=== PATIENT | female | born 1935 | race Caucasian/White ===

== ENCOUNTER 2017-04-26 10:29 | Inpatient (IN) | payer OTHER ==
[~2017-04-26] VITALS: Ht 162.6 cm; Wt 64.6 kg
[~2017-04-26 10:29] MED LIST: ACET325T14 PO; ALEN70TA3 PO; CALC200T20 PO; CALC3.7S5 NAS; CHOL10003 PO; FOSF3PAC PO; IBUP-1222 PO; IBUP200T48 PO; LEVO750T26 PO; MELO-184 PO; NITR100C56 PO; NITR50CA11 PO; ONDA4TAB13 PO; OXYC1TAB7 PO; SENN1TAB7 PO
[2017-04-26 15:04] LABS: BLOOD UREA NITROGEN 11 mg/dL (7-18)
[2017-04-26 15:09] LABS: IS PT STATUS REG ER OR PRE ER? YES
[2017-04-26] MEDS ORDERED: CEFTRIAXONE PMX 1GM/50ML 50 ML ONE (16:22)
[2017-04-26] MEDS ORDERED: ACETAMINOPHEN 325 MG TABLET ONE (16:22)
[2017-04-26] MEDS ORDERED: ACETAMINOPHEN 325 MG TABLET PO ONE (16:30)
[2017-04-26] MEDS ORDERED: CEFTRIAXONE PMX 1GM/50ML 50 ML IV ONE (16:30)
[2017-04-26] MEDS ORDERED: LABETALOL 5MG/ML, 20ML IVPush PRN (17:30)
[2017-04-26] MEDS ORDERED: ACETAMINOPHEN 325 MG TABLET PO PRN (17:30)
[2017-04-26] MEDS ORDERED: ENALAPRILAT 1.25 MG/ML, 2ML IVPush PRN (17:30)
[2017-04-26] MEDS ORDERED: BISACODYL 10 MG SUPP PR PRN (17:30)
[2017-04-26] MEDS ORDERED: POLYETHYLENE GLYCOL 17 GM PACKET PO PRN (17:30)
[2017-04-26] MEDS ORDERED: ONDANSETRON 2MG/ML, 2ML IVPush PRN (17:30)
[2017-04-26 17:58] VITALS: BP 116/81
[2017-04-26] MEDS: CEFTRIAXONE PMX 1GM/50ML 50 ML IV SCH (18:00)
[2017-04-26] MEDS ORDERED: OXYcodone/APAP 5/325MG TABLET PO PRN (18:00)
[2017-04-26] MEDS ORDERED: IBUP-1222 PO (18:10)
[2017-04-26 18:26] VITALS: BP 139/80
[2017-04-26] MEDS: ENOXAPARIN 40 MG/0.4 ML SQ SCH (20:15)
[2017-04-26] MEDS: IBUPROFEN 200 MG TABLET PO PRN (20:49)
[2017-04-27 00:31] VITALS: BP 103/67
[2017-04-27 07:37] VITALS: BP 117/74
[2017-04-27] MEDS: SENNA/DOCUSATE TABLET PO SCH ×2 (09:00→09:43)
[2017-04-27] MEDS: IBUPROFEN 200 MG TABLET PO PRN (09:42)
[2017-04-27 12:35] VITALS: BP 104/66
[2017-04-27 18:26] VITALS: BP 111/75
[2017-04-27] MEDS: CEFTRIAXONE PMX 1GM/50ML 50 ML IV SCH (18:49)
[2017-04-27] MEDS: ENOXAPARIN 40 MG/0.4 ML SQ SCH (21:32)
[2017-04-28 00:23] VITALS: BP 127/82
[2017-04-28 07:18] VITALS: BP 125/77
[2017-04-28] MEDS: IBUPROFEN 200 MG TABLET PO PRN (08:19)
[2017-04-28] MEDS: CALCITONIN NASAL 200 UNITS/0.09ML, 3.7ML NAS SCH (08:19)
[2017-04-28] MEDS: SENNA/DOCUSATE TABLET PO SCH (08:20)
[2017-04-28 12:00] VITALS: BP 108/72
[2017-04-28] MEDS: CEFTRIAXONE PMX 1GM/50ML 50 ML IV SCH (18:20)
[2017-04-28 20:00] VITALS: BP 113/74
[2017-04-28] MEDS: ENOXAPARIN 40 MG/0.4 ML SQ SCH (21:19)
[2017-04-29 02:00] VITALS: BP 108/68
[2017-04-29 07:13] VITALS: BP 114/71
[2017-04-29] MEDS: CALCITONIN NASAL 200 UNITS/0.09ML, 3.7ML NAS SCH (08:58)
[2017-04-29] MEDS: SENNA/DOCUSATE TABLET PO SCH (08:58)
[2017-04-29] MEDS ORDERED: CALC3.7S5 NAS (13:00)
[2017-04-29] MEDS ORDERED: NITR100C56 PO (13:00)
== END 2017-04-29 15:25 | disposition home or self-care (01) | DRG 690 ==
LOC: ED 13:11 → EDIP 16:20 → 3NE 17:22
PROVIDERS: ADMIT Hospitalist; ATTEND Family Medicine
PROC: 0T9B70Z Drainage of Bladder with Drainage Device, Via Natural or Artificial Opening (ICD-10-PCS; principal; 2017-04-26)
DX: N39.0 Urinary tract infection, site not specified (principal); F03.90 Unspecified dementia, unspecified severity, without behavioral disturbance, psychotic disturbance, mood disturbance, and anxiety; M81.0 Age-related osteoporosis without current pathological fracture; N32.81 Overactive bladder; R13.10 Dysphagia, unspecified; M54.2 Cervicalgia; W06.XXXA Fall from bed, initial encounter; B96.20 Unspecified Escherichia coli [E. coli] as the cause of diseases classified elsewhere; R32 Unspecified urinary incontinence; Z66 Do not resuscitate; Z87.440 Personal history of urinary (tract) infections; Z87.891 Personal history of nicotine dependence; Z88.0 Allergy status to penicillin; Y93.89 Activity, other specified; Y92.092 Bedroom in other non-institutional residence as the place of occurrence of the external cause; Y99.8 Other external cause status; R33.0 Drug induced retention of urine; T44.3X5A Adverse effect of other parasympatholytics [anticholinergics and antimuscarinics] and spasmolytics, initial encounter
CPT/HCPCS: 36415; 71010; 80048; 81001; 82040; 84484; 85025; 87077; 87086; 87186; 93005; 96374; J0696; J1650; 92523-GN

== ENCOUNTER 2017-11-30 10:45 | Emergency (ER) | payer OTHER ==
[~2017-11-30] VITALS: Ht 162.6 cm; Wt 63.0 kg
[~2017-11-30 10:45] MED LIST changes: -IBUP200T48 PO; +IBUP200T49 PO; -MELO-184 PO; +MELO15TA24 PO
[2017-11-30 11:19] LABS: BASOPHILS # (AUTO) 0.04 x10^3/uL (0-0.1); BASOPHILS % (AUTO) 1 % (0-1); EOSINOPHILS # (AUTO) 0.21 x10^3/uL (0-0.4); EOSINOPHILS % (AUTO) 3 % (1-7); LYMPHOCYTES # (AUTO) 1.18 x10^3/uL (1-3.4); LYMPHOCYTES % (AUTO) 15 % (22-44); MD NO; MEAN CORPUSCULAR HEMOGLOBIN 30.2 pg (27.0-34.8); MEAN CORPUSCULAR HGB CONC 33.3 g/dL (32.4-35.8); MEAN CORPUSCULAR VOLUME 90.7 fL (80-100); MEAN PLATELET VOLUME 6.9 fL (7.4-10.4); MONOCYTES # (AUTO) 0.89 x10^3/uL (0.2-0.8); MONOCYTES % (AUTO) 11 % (2-9); NEUTROPHILS # (AUTO) 5.79 x10^3/uL (1.8-6.8); NEUTROPHILS % (AUTO) 71 % (42-75); PLATELET COUNT 136 x10^3/uL (130-400); RED BLOOD COUNT 4.31 x10^6/uL (3.82-5.3); RED CELL DISTRIBUTION WIDTH 13.6 % (9.6-15.2)
[2017-11-30 11:29] LABS: CHLORIDE 108 mmol/L (98-107)
[2017-11-30 11:30] LABS: ANION GAP 10 mmol/L (5-15); CREATININE 0.87 mg/dL (0.55-1.02)
[2017-11-30 11:38] LABS: INTERNATIONAL NORMALIZED RATIO 1.03 (0.93-1.1); PROTHROMBIN TIME 10.7 Seconds (9.6-11.5)
[2017-11-30] MEDS ORDERED: APIXABAN 5 MG TABLET PO ONE (12:30)
[2017-11-30 13:04] VITALS: BP 114/38
== END 2017-11-30 14:11 | disposition home or self-care (01) ==
LOC: ED 11:48
DX: I82.411 Acute embolism and thrombosis of right femoral vein (principal); I82.491 Acute embolism and thrombosis of other specified deep vein of right lower extremity; Z79.01 Long term (current) use of anticoagulants
CPT/HCPCS: 36415; 80048; 85025; 85610; 85730; 99285

== ENCOUNTER 2017-12-01 10:26 | Observation (INO) | payer OTHER ==
[~2017-12-01] VITALS: Ht 162.6 cm; Wt 68.6 kg
[2017-12-01] MEDS ORDERED: ENOXAPARIN 80 MG/0.8 ML ONE (11:00)
[2017-12-01] MEDS ORDERED: ENOXAPARIN 80 MG/0.8 ML SQ ONE (11:30)
[2017-12-01 12:28] LABS: BASOPHILS # (AUTO) 0.04 x10^3/uL (0-0.1); BASOPHILS % (AUTO) 1 % (0-1); EOSINOPHILS % (AUTO) 3 % (1-7); LYMPHOCYTES # (AUTO) 1.66 x10^3/uL (1-3.4); LYMPHOCYTES % (AUTO) 24 % (22-44); MD NO; MEAN CORPUSCULAR HEMOGLOBIN 30.2 pg (27.0-34.8); MEAN CORPUSCULAR HGB CONC 33.7 g/dL (32.4-35.8); MEAN CORPUSCULAR VOLUME 89.6 fL (80-100); MONOCYTES # (AUTO) 0.81 x10^3/uL (0.2-0.8); MONOCYTES % (AUTO) 12 % (2-9); NEUTROPHILS # (AUTO) 4.24 x10^3/uL (1.8-6.8); NEUTROPHILS % (AUTO) 61 % (42-75); PLATELET COUNT 163 x10^3/uL (130-400); RED BLOOD COUNT 4.24 x10^6/uL (3.82-5.3); RED CELL DISTRIBUTION WIDTH 13.8 % (9.6-15.2)
[2017-12-01] MEDS ORDERED: SODIUM CHLORIDE FLUSH 10ML SYR IVF PRN (12:30)
[2017-12-01 12:36] LABS: INTERNATIONAL NORMALIZED RATIO 1.03 (0.93-1.1); PROTHROMBIN TIME 10.7 Seconds (9.6-11.5)
[2017-12-01 12:40] LABS: ALBUMIN 3.6 g/dL (3.4-5.0); ANION GAP 8 mmol/L (5-15); CALCIUM 8.9 mg/dL (8.5-10.1); CHLORIDE 108 mmol/L (98-107); CREATININE 0.95 mg/dL (0.55-1.02)
[2017-12-01 13:46] VITALS: BP 105/67
[2017-12-01] MEDS ORDERED: ONDANSETRON 2MG/ML, 2ML IVPush PRN (14:00)
[2017-12-01] MEDS ORDERED: IBUPROFEN 600 MG TABLET PO PRN (14:00)
[2017-12-01] MEDS ORDERED: DOCUSATE 100 MG CAPSULE PO PRN (14:00)
[2017-12-01] MEDS ORDERED: ACETAMINOPHEN 325 MG TABLET PO PRN ×2 (14:00)
[2017-12-01] MEDS ORDERED: HYDROcodone/APAP 5/325 TABLET PO PRN (14:00)
[2017-12-01] MEDS ORDERED: POLYETHYLENE GLYCOL 17 GM PACKET PO PRN (14:00)
[2017-12-01 19:06] VITALS: BP 104/66
[2017-12-01] MEDS: ENOXAPARIN 80 MG/0.8 ML SQ SCH (22:56)
[2017-12-02 02:20] VITALS: BP 114/74
[2017-12-02] MEDS ORDERED: FLU VACC QS2017-18 (36MOS+) UP/PF 0.5 ML IM-VACC ONE (06:30)
[2017-12-02 07:06] VITALS: BP 113/73
[2017-12-02] MEDS ORDERED: SENNA/DOCUSATE TABLET PO SCH (09:00)
[2017-12-02] MEDS ORDERED: CALCITONIN NASAL 200 UNITS/0.09ML, 3.7ML NAS SCH (09:00)
[2017-12-02] MEDS: ENOXAPARIN 80 MG/0.8 ML SQ SCH (11:58)
[2017-12-02 12:58] VITALS: BP 96/62
[2017-12-02] MEDS ORDERED: APIX5TAB PO (15:05)
[2017-12-05] MEDS ORDERED: NITR100C56 PO (15:15)
[2017-12-07] MEDS ORDERED: APIX5TAB PO (11:38)
== END 2017-12-02 17:48 | disposition home or self-care (01) ==
LOC: ED 11:02 → EDIP 12:10 → INTOOBSV 12:10 → 3NE 13:28
PROVIDERS: ADMIT Family Medicine; ATTEND Family Medicine
DX: I82.411 Acute embolism and thrombosis of right femoral vein (principal); M81.0 Age-related osteoporosis without current pathological fracture; M84.40XA Pathological fracture, unspecified site, initial encounter for fracture; Z86.711 Personal history of pulmonary embolism; Z86.718 Personal history of other venous thrombosis and embolism; Z87.440 Personal history of urinary (tract) infections; Z23 Encounter for immunization
CPT/HCPCS: 36415; 80048; 82040; 85025; 85610; 85730; 90471; 90686; 96372; 99285; G0378; J1650

== ENCOUNTER 2018-09-03 15:51 | Emergency (ER) | payer OTHER ==
[~2018-09-03] VITALS: Ht 154.9 cm; Wt 71.0 kg
[~2018-09-03 15:51] MED LIST changes: +APIX5TAB PO; -SENN1TAB7 PO; +SENN1TAB8 PO
[2018-09-03 17:57] LABS: MICROSCOPIC AUTO
[2018-09-03 17:58] LABS: CULTURE INDICATED? YES
[2018-09-03 19:16] VITALS: BP 116/68
== END 2018-09-03 19:23 | disposition home or self-care (01) ==
LOC: ED 18:37
DX: N30.00 Acute cystitis without hematuria (principal); R53.1 Weakness
CPT/HCPCS: 81001; 87077; 87086; 87186; 99284

== ENCOUNTER 2018-09-17 19:29 | Emergency (ER) | payer OTHER ==
[~2018-09-17] VITALS: Ht 162.6 cm; Wt 55.0 kg
[2018-09-17 21:00] LABS: CULTURE INDICATED? NO; MICROSCOPIC NOT IND
[2018-09-17 23:09] VITALS: BP 129/73
== END 2018-09-17 23:30 | disposition home or self-care (01) ==
LOC: ED 21:01
DX: G89.11 Acute pain due to trauma (principal); M25.551 Pain in right hip; M25.561 Pain in right knee; G89.29 Other chronic pain; W01.0XXA Fall on same level from slipping, tripping and stumbling without subsequent striking against object, initial encounter; Y93.89 Activity, other specified; Y92.009 Unspecified place in unspecified non-institutional (private) residence as the place of occurrence of the external cause; Y99.8 Other external cause status
CPT/HCPCS: 81003; 99285

== ENCOUNTER 2018-11-12 16:59 | Inpatient (IN) | payer OTHER ==
[~2018-11-12] VITALS: Ht 165.1 cm; Wt 66.6 kg
--- NOTE | 2018-11-12 17:21 | NUR ---
SHAQ GAVIRIA FROM [place]. REPORT PT WAS FOUND ON GROUND SOMETIME TODAY, UNK WHEN SHE FELL, PER STAFF PT IS MORE ALTERED THAN BASELINE (HX DEMENTIA). PT ON BLOOD THINNERS. PT ANSWERES YES TO ALL QUESTIONS/STATEMENTS FROM ED STAFF. PER EVERETTE PT HAS HX CHRONIC UTI'S, RECENTLY TAKEN OFF KEFLEX. PT INCONTINENT OF URINE AND STOOL ON ARRIVAL. STOOL FORMED WITH RED TINGED, GUIAC POS. NOTIFIED. STRAIGHT CATH COMPLETED AND SENT TO LAB.
[2018-11-12] MEDS ORDERED: SODIUM CHLORIDE FLUSH 10ML SYR IVF ONE (17:30)
[2018-11-12 17:34] LABS: MICROSCOPIC INDICATED
[2018-11-12 17:36] LABS: CULTURE INDICATED? YES
--- NOTE | 2018-11-12 17:36 | NUR ---
DAUGHTER IN LAW AT BEDSIDE, REPORTS PT'S MENTATION IS SIGNIFICANTLY DECLINED FROM HER BASELINE. PT NORMALLY CONVERSES WITH HER, PT MOSTLY NON VERBAL WITH ONE OR TWO WORDS. PT FOLLOWS COMMANDS, NO OBVIOUS TRAUMA NOTED UPON INITAL ASSESMENT. PT CLEANED OFF STOOL AND URINE. DAUGHTER AWARE/AGREES TO POC, DENIES QUESTIONS/CONCERNS
[2018-11-12] MEDS ORDERED: CEPH-367 PO (17:38)
[2018-11-12 17:52] LABS: BASOPHILS # (AUTO) 0.02 x10^3/uL (0-0.1); BASOPHILS % (AUTO) 0 % (0-1); EOSINOPHILS % (AUTO) 0 % (1-7); LYMPHOCYTES # (AUTO) 0.66 x10^3/uL (1-3.4); LYMPHOCYTES % (AUTO) 9 % (22-44); MD NO; MEAN CORPUSCULAR HEMOGLOBIN 31.1 pg (27.0-34.8); MEAN CORPUSCULAR VOLUME 91.4 fL (80-100); MEAN PLATELET VOLUME 7.8 fL (7.4-10.4); MONOCYTES # (AUTO) 0.79 x10^3/uL (0.2-0.8); MONOCYTES % (AUTO) 11 % (2-9); NEUTROPHILS # (AUTO) 5.74 x10^3/uL (1.8-6.8); NEUTROPHILS % (AUTO) 80 % (42-75); PLATELET COUNT 191 x10^3/uL (130-400); RED BLOOD COUNT 4.68 x10^6/uL (3.82-5.3); RED CELL DISTRIBUTION WIDTH 14.6 % (9.6-15.2)
[2018-11-12 18:00] LABS: INTERNATIONAL NORMALIZED RATIO 1.03 (0.93-1.1); PROTHROMBIN TIME 10.9 Seconds (9.6-11.5)
[2018-11-12 18:02] LABS: ALBUMIN 4.1 g/dL (3.4-5.0); ANION GAP 10 mmol/L (5-15); CALCIUM 9.3 mg/dL (8.5-10.1); CHLORIDE 108 mmol/L (98-107)
[2018-11-12 18:05] LABS: ALANINE AMINOTRANSFERASE 18 U/L (12-78); ALKALINE PHOSPHATASE 99 U/L (45-117); BILIRUBIN,TOTAL 0.5 mg/dL (0.2-1.0); CREATININE 1.01 mg/dL (0.55-1.02); TOTAL PROTEIN 8.5 g/dL (6.4-8.2)
[2018-11-12] MEDS ORDERED: CEFTRIAXONE PMX 1GM/50ML 50 ML ONE (18:09)
[2018-11-12] MEDS ORDERED: CEFTRIAXONE PMX 1GM/50ML 50 ML IVPB ONE (18:30)
--- NOTE | 2018-11-12 19:21 | NUR ---
PHARMACY CALLED ABOUT PTS ALLERGY TO PNC. STATES CONCERNED ABOUT ROCEPHIN ADMINSTRATION, NOTIFIED, FAMLY UNAWARE OF PTS REACTION TO PNC, STATES SHE HAS "PROBABLY HAD IT IN THE PAST, SHE HAS HAD SO MANY ABX OVER THE LAST FEW YEARS" PER MD OKAY TO GIVE MEDS
--- NOTE | 2018-11-12 19:56 | NUR ---
IN FOR RECHECK WITH FAMILY AT BEDSIDE. PT SHOWS NO SIGNS OF ALLERGIC REACTION TO ROCEPHIN. REMAINS ON CONT CARDIAC AND PULSE OX MONITORING.
[2018-11-12] MEDS ORDERED: hydrALAzine 20 MG/ML, 1ML IVPush PRN (20:00)
--- NOTE | 2018-11-12 20:26 | NUR ---
REPORT TO EVIN MOORE. PT READY FOR TRANSPORT.
[2018-11-12 21:16] VITALS: BP 133/80
[2018-11-12] MEDS: SODIUM CHLORIDE 0.9% 1,000 ML IV SCH (21:26)
[2018-11-13 00:53] VITALS: BP 123/73
[2018-11-13 07:57] VITALS: BP 120/75
[2018-11-13] MEDS: CEFTRIAXONE PMX 1GM/50ML 50 ML IV SCH (08:30)
[2018-11-13] MEDS: SODIUM CHLORIDE 0.9% 1,000 ML IV SCH ×2 (08:31→22:17)
[2018-11-13 08:35] LABS: ANION GAP 8 mmol/L (5-15); CALCIUM 8.3 mg/dL (8.5-10.1); CHLORIDE 112 mmol/L (98-107); CREATININE 0.82 mg/dL (0.55-1.02)
[2018-11-13 10:59] LABS: BASOPHILS # (AUTO) 0.03 x10^3/uL (0-0.1); BASOPHILS % (AUTO) 1 % (0-1); EOSINOPHILS # (AUTO) 0.01 x10^3/uL (0-0.4); EOSINOPHILS % (AUTO) 0 % (1-7); LYMPHOCYTES # (AUTO) 1.47 x10^3/uL (1-3.4); LYMPHOCYTES % (AUTO) 25 % (22-44); MD NO; MEAN CORPUSCULAR HGB CONC 33.4 g/dL (32.4-35.8); MEAN CORPUSCULAR VOLUME 92.8 fL (80-100); MEAN PLATELET VOLUME 7.9 fL (7.4-10.4); MONOCYTES # (AUTO) 0.89 x10^3/uL (0.2-0.8); MONOCYTES % (AUTO) 15 % (2-9); NEUTROPHILS # (AUTO) 3.39 x10^3/uL (1.8-6.8); NEUTROPHILS % (AUTO) 59 % (42-75); PLATELET COUNT 178 x10^3/uL (130-400); RED BLOOD COUNT 4.66 x10^6/uL (3.82-5.3); RED CELL DISTRIBUTION WIDTH 14.5 % (9.6-15.2)
[2018-11-13] MEDS: CALCITONIN NASAL 200 UNITS/0.09ML, 3.7ML NAS SCH (11:30)
[2018-11-13 13:06] VITALS: BP 129/78
[2018-11-13] MEDS: ACETAMINOPHEN 325 MG TABLET PO PRN (13:40)
[2018-11-13 19:10] VITALS: BP 125/76
[2018-11-14 02:16] VITALS: BP 130/77
[2018-11-14] MEDS: ACETAMINOPHEN 325 MG TABLET PO PRN (02:22)
[2018-11-14 06:33] VITALS: BP 127/79
[2018-11-14] MEDS: CALCITONIN NASAL 200 UNITS/0.09ML, 3.7ML NAS SCH (08:16)
[2018-11-14] MEDS: CEFTRIAXONE PMX 1GM/50ML 50 ML IV SCH (09:27)
[2018-11-14] MEDS: SODIUM CHLORIDE 0.9% 1,000 ML IV SCH (11:02)
[2018-11-14 13:09] VITALS: BP 109/74
[2018-11-14 19:54] VITALS: BP 106/66
[2018-11-15] MEDS: SODIUM CHLORIDE 0.9% 1,000 ML IV SCH ×2 (00:30→14:52)
[2018-11-15 02:54] VITALS: BP 115/63
[2018-11-15] MEDS: CEFTRIAXONE PMX 1GM/50ML 50 ML IV SCH (09:26)
[2018-11-15] MEDS: CALCITONIN NASAL 200 UNITS/0.09ML, 3.7ML NAS SCH (09:27)
[2018-11-15 09:53] VITALS: BP 104/61
[2018-11-15] MEDS ORDERED: LEVO500T47 PO (11:03)
[2018-11-15 13:00] VITALS: BP 104/67
[2018-11-15 19:47] VITALS: BP 100/64
[2018-11-16 02:26] VITALS: BP 110/65
[2018-11-16] MEDS: SODIUM CHLORIDE 0.9% 1,000 ML IV SCH (02:35)
[2018-11-16 06:45] VITALS: BP 145/82
[2018-11-16] MEDS: CALCITONIN NASAL 200 UNITS/0.09ML, 3.7ML NAS SCH (08:56)
[2018-11-16] MEDS: CEFTRIAXONE PMX 1GM/50ML 50 ML IV SCH (08:56)
[2018-11-16 13:40] VITALS: BP 100/66
== END 2018-11-16 17:15 | DRG 689 ==
LOC: ED 18:20 → SUATTDRO 19:46 → EDIP 19:47 → 3NW 20:50
PROVIDERS: ADMIT Hospitalist; ATTEND Hospitalist
PROC: 0T9B70Z Drainage of Bladder with Drainage Device, Via Natural or Artificial Opening (ICD-10-PCS; principal; 2018-11-12)
DX: N39.0 Urinary tract infection, site not specified (principal); G93.41 Metabolic encephalopathy; Z79.01 Long term (current) use of anticoagulants; F03.90 Unspecified dementia, unspecified severity, without behavioral disturbance, psychotic disturbance, mood disturbance, and anxiety; Z16.24 Resistance to multiple antibiotics; Z75.1 Person awaiting admission to adequate facility elsewhere; Z86.711 Personal history of pulmonary embolism; Z86.718 Personal history of other venous thrombosis and embolism; Z79.899 Other long term (current) drug therapy
CPT/HCPCS: 36415; 70450; 71045; 80048; 80053; 81001; 83605; 83735; 84100; 84145; 85025; 85610; 85730; 87040; 87077; 87086; 87186; 93005; 96365; G0378; J0696; J7030

== ENCOUNTER 2019-04-14 20:41 | Emergency (ER) | payer MEDICARE ==
[~2019-04-14] VITALS: Ht 165.1 cm; Wt 59.3 kg
[~2019-04-14 20:41] MED LIST changes: +CEPH-367 PO; +LEVO500T47 PO; +SENN-177 PO; -SENN1TAB8 PO
--- NOTE | 2019-04-14 20:48 | NUR ---
assessment made. chart up for MD to see. c/o N/V since 12 noon. + dizziness. denies CP/SOB.
--- NOTE | 2019-04-14 20:58 | NUR ---
ERP at bedside for patient evaluation.
--- NOTE | 2019-04-14 21:09 | NUR ---
laborer [employer] at bedside for blood draw.
[2019-04-14 21:17] LABS: BASOPHILS # (AUTO) 0.02 x10^3/uL (0-0.1); BASOPHILS % (AUTO) 0 % (0-1); EOSINOPHILS # (AUTO) 0.06 x10^3/uL (0-0.4); EOSINOPHILS % (AUTO) 1 % (1-7); LYMPHOCYTES # (AUTO) 1.18 x10^3/uL (1-3.4); LYMPHOCYTES % (AUTO) 21 % (22-44); MD NO; MEAN CORPUSCULAR HEMOGLOBIN 30.2 pg (27.0-34.8); MEAN CORPUSCULAR HGB CONC 33.3 g/dL (32.4-35.8); MEAN CORPUSCULAR VOLUME 90.8 fL (80-100); MEAN PLATELET VOLUME 7.3 fL (7.4-10.4); MONOCYTES # (AUTO) 0.36 x10^3/uL (0.2-0.8); MONOCYTES % (AUTO) 6 % (2-9); NEUTROPHILS # (AUTO) 3.98 x10^3/uL (1.8-6.8); NEUTROPHILS % (AUTO) 71 % (42-75); PLATELET COUNT 191 x10^3/uL (130-400); RED BLOOD COUNT 4.37 x10^6/uL (3.82-5.3); RED CELL DISTRIBUTION WIDTH 15.1 % (9.6-15.2)
--- NOTE | 2019-04-14 21:25 | NUR ---
straight cath performed, urine sample obtained and sent to lab.
[2019-04-14 21:28] LABS: ALANINE AMINOTRANSFERASE 21 U/L (12-78); ALBUMIN 3.5 g/dL (3.4-5.0); ANION GAP 9 mmol/L (5-15); CALCIUM 8.8 mg/dL (8.5-10.1); CHLORIDE 110 mmol/L (98-107); CREATININE 0.84 mg/dL (0.55-1.02)
[2019-04-14 21:33] LABS: ALKALINE PHOSPHATASE 102 U/L (45-117); BILIRUBIN,TOTAL 0.2 mg/dL (0.2-1.0); TOTAL PROTEIN 7.6 g/dL (6.4-8.2); TROPONIN I < 0.015 ng/mL (0.000-0.045)
[2019-04-14 21:36] LABS: MICROSCOPIC AUTO
[2019-04-14 21:40] LABS: CULTURE INDICATED? YES
--- NOTE | 2019-04-14 21:42 | NUR ---
Daughter at bedside talking to ERP.
--- NOTE | 2019-04-14 21:56 | NUR ---
all labs resulted. chart up for MD to re-eval. no vomiting noted.
[2019-04-14] MEDS ORDERED: ONDANSETRON ODT 4 MG ONE (22:52)
[2019-04-14] MEDS ORDERED: CEFDINIR 300 MG CAPSULE ONE (22:53)
[2019-04-14] MEDS ORDERED: ONDANSETRON ODT 4 MG PO ONE (23:00)
[2019-04-14] MEDS ORDERED: CEFDINIR 300 MG CAPSULE PO ONE (23:00)
--- NOTE | 2019-04-14 23:19 | NUR ---
patient medicated. awaiting [facility] to take patient back to assisted living.
[2019-04-15] VITALS: BP 100/58
--- NOTE | 2019-04-15 00:28 | NUR ---
PIV REMOVED. REPORT TO [facility]. PT TO BE TRANSPORTED BY [facility]
== END 2019-04-15 00:31 | disposition home or self-care (01) ==
LOC: ED 21:57
DX: R11.2 Nausea with vomiting, unspecified (principal); Z87.891 Personal history of nicotine dependence; Z86.718 Personal history of other venous thrombosis and embolism
CPT/HCPCS: 36415; 80053; 81001; 83690; 84484; 85025; 87077; 87086; 87184; 87186; 93005; 99284; Q0162

== ENCOUNTER 2019-04-15 11:32 | Observation (INO) | payer MEDICARE ==
[~2019-04-15] VITALS: Ht 165.1 cm; Wt 63.9 kg
--- NOTE | 2019-04-15 11:59 | NUR ---
PT IN GOWN AND IN BED. PT BIB [facility] FOR N/V X 2 DAYS. SEEN YESTERDAY IN THE ER FOR SAME. SENT HOME WITH ZONAYELI AND [facility]Fiordaliza. UNABLE TO KEEP ANY DOWN PER DAUGHTER. PT DENIES ALL OTHER COMPLAINTS EXCEPT THE N/V X 2 DAYS. PT STATES SHE HAS VOMITED CLOSE TO 10 TIMES SINCE DISCHARGE LAST NIGHT.
[2019-04-15] MEDS ORDERED: SODIUM CHLORIDE 0.9% 1,000 ML IV ONE (12:04)
[2019-04-15] MEDS ORDERED: ONDANSETRON 2MG/ML, 2ML ONE (12:19)
[2019-04-15] MEDS ORDERED: FAMOTIDINE 20 MG/2 ML ONE (12:20)
[2019-04-15 12:22] LABS: BASOPHILS # (AUTO) 0.01 x10^3/uL (0-0.1); BASOPHILS % (AUTO) 0 % (0-1); EOSINOPHILS # (AUTO) 0.01 x10^3/uL (0-0.4); EOSINOPHILS % (AUTO) 0 % (1-7); LYMPHOCYTES # (AUTO) 0.93 x10^3/uL (1-3.4); LYMPHOCYTES % (AUTO) 19 % (22-44); MD NO; MEAN CORPUSCULAR HEMOGLOBIN 30.4 pg (27.0-34.8); MEAN CORPUSCULAR HGB CONC 33.1 g/dL (32.4-35.8); MEAN CORPUSCULAR VOLUME 91.8 fL (80-100); MEAN PLATELET VOLUME 7.2 fL (7.4-10.4); MONOCYTES # (AUTO) 0.31 x10^3/uL (0.2-0.8); MONOCYTES % (AUTO) 7 % (2-9); NEUTROPHILS # (AUTO) 3.52 x10^3/uL (1.8-6.8); NEUTROPHILS % (AUTO) 74 % (42-75); PLATELET COUNT 204 x10^3/uL (130-400); RED BLOOD COUNT 4.59 x10^6/uL (3.82-5.3); RED CELL DISTRIBUTION WIDTH 15.4 % (9.6-15.2)
[2019-04-15] MEDS ORDERED: SODIUM CHLORIDE FLUSH 10ML SYR IVF ONE (12:30)
[2019-04-15] MEDS ORDERED: FAMOTIDINE 20 MG/2 ML IVP ONE (12:30)
[2019-04-15] MEDS ORDERED: ONDANSETRON 2MG/ML, 2ML IVPush ONE (12:30)
[2019-04-15 12:34] LABS: ALANINE AMINOTRANSFERASE 20 U/L (12-78); ALBUMIN 3.6 g/dL (3.4-5.0); ANION GAP 5 mmol/L (5-15); CALCIUM 9.1 mg/dL (8.5-10.1); CHLORIDE 110 mmol/L (98-107); CREATININE 0.98 mg/dL (0.55-1.02)
[2019-04-15 12:39] LABS: ALKALINE PHOSPHATASE 101 U/L (45-117); BILIRUBIN,TOTAL 0.4 mg/dL (0.2-1.0); TOTAL PROTEIN 7.5 g/dL (6.4-8.2); TROPONIN I < 0.015 ng/mL (0.000-0.045)
[2019-04-15] MEDS ORDERED: CEFTRIAXONE PMX 1GM/50ML 50 ML IV ONE (13:00)
[2019-04-15] MEDS ORDERED: SODIUM CHLORIDE FLUSH 10ML SYR IVF PRN (13:00)
[2019-04-15] MEDS ORDERED: CEFTRIAXONE PMX 1GM/50ML 50 ML ONE (13:47)
[2019-04-15] MEDS ORDERED: ONDANSETRON ODT 4 MG PO PRN (14:30)
[2019-04-15] MEDS ORDERED: PROMETHAZINE 25 MG/ML, 1ML IM PRN (14:30)
[2019-04-15] MEDS ORDERED: OXYcodone IR 5MG TABLET PO PRN (14:30)
[2019-04-15] MEDS ORDERED: BISACODYL 10 MG SUPP PR PRN (14:30)
[2019-04-15] MEDS ORDERED: POLYETHYLENE GLYCOL 17 GM PACKET PO PRN (14:30)
[2019-04-15] MEDS ORDERED: morphine SULFATE 10 MG/ML, 1ML IVPush PRN (14:30)
[2019-04-15] MEDS ORDERED: DOCUSATE 100 MG CAPSULE PO PRN (14:30)
[2019-04-15] MEDS ORDERED: ACETAMINOPHEN 325 MG TABLET PO PRN (14:30)
[2019-04-15] MEDS ORDERED: hydrALAzine 20 MG/ML, 1ML IVPush PRN (14:30)
[2019-04-15 14:35] VITALS: BP 127/69
[2019-04-15] MEDS: SODIUM CHLORIDE 0.9% 1,000 ML IV SCH ×2 (15:08→19:49)
[2019-04-15] MEDS: ONDANSETRON 2MG/ML, 2ML IVPush PRN (15:08)
[2019-04-15 15:34] LABS: FREE T4 (FREE THYROXINE) 1.01 ng/dL (0.76-1.46); THYROID STIMULATING HORMONE 0.764 mIU/L (0.358-3.740)
[2019-04-15] MEDS: PANTOPRAZOLE 40 MG IV IVPush SCH (16:58)
[2019-04-15 19:14] VITALS: BP 115/75
[2019-04-15] MEDS: APIXABAN 5 MG TABLET PO SCH (20:31)
[2019-04-16 01:07] VITALS: BP 108/68
[2019-04-16] MEDS: CEFTRIAXONE PMX 2GM/50ML 50 ML IV SCH (01:15)
[2019-04-16] MEDS: SODIUM CHLORIDE 0.9% 1,000 ML IV SCH (04:01)
[2019-04-16] MEDS: PANTOPRAZOLE 40 MG IV IVPush SCH ×2 (04:49→17:00)
[2019-04-16 05:59] LABS: ANION GAP 5 mmol/L (5-15); CALCIUM 8.2 mg/dL (8.5-10.1); CHLORIDE 116 mmol/L (98-107)
[2019-04-16 06:02] LABS: ALANINE AMINOTRANSFERASE 15 U/L (12-78); ALKALINE PHOSPHATASE 83 U/L (45-117); BILIRUBIN,TOTAL 0.3 mg/dL (0.2-1.0); CHOL/HDL RATIO 2.9; CHOLESTEROL, TOTAL 152 mg/dL (140-239); CREATININE 0.78 mg/dL (0.55-1.02); HDL CHOL % 35 % (28-40); HDL CHOLESTEROL (DIRECT) 53 mg/dL (40-60); LDL CHOLESTEROL,CALCULATED 78 mg/dL (54-169); LDL/HDL RATIO 1.5 (0.5-3.0); TOTAL PROTEIN 6.7 g/dL (6.4-8.2); TRIGLYCERIDES 103 mg/dL (50-200); VLDL CHOLESTEROL 21 mg/dL (0-25)
[2019-04-16 06:24] LABS: MEAN CORPUSCULAR HEMOGLOBIN 30.2 pg (27.0-34.8); MEAN CORPUSCULAR HGB CONC 32.9 g/dL (32.4-35.8); MEAN PLATELET VOLUME 7.5 fL (7.4-10.4); PLATELET COUNT 168 x10^3/uL (130-400); RED BLOOD COUNT 3.93 x10^6/uL (3.82-5.3); RED CELL DISTRIBUTION WIDTH 14.9 % (9.6-15.2)
[2019-04-16 06:35] VITALS: BP 110/71
[2019-04-16 06:57] LABS: BASOPHILS # (AUTO) 0.02 x10^3/uL (0-0.1); BASOPHILS % (AUTO) 1 % (0-1); EOSINOPHILS # (AUTO) 0.07 x10^3/uL (0-0.4); EOSINOPHILS % (AUTO) 2 % (1-7); LYMPHOCYTES # (AUTO) 1.54 x10^3/uL (1-3.4); LYMPHOCYTES % (AUTO) 34 % (22-44); MD SCAN; MONOCYTES # (AUTO) 0.49 x10^3/uL (0.2-0.8); MONOCYTES % (AUTO) 11 % (2-9); NEUTROPHILS # (AUTO) 2.39 x10^3/uL (1.8-6.8); NEUTROPHILS % (AUTO) 53 % (42-75)
[2019-04-16] MEDS: APIXABAN 5 MG TABLET PO SCH ×2 (09:13→20:46)
[2019-04-16 13:55] VITALS: BP 122/77
[2019-04-16 18:41] VITALS: BP 100/65
[2019-04-17] MEDS: CEFTRIAXONE PMX 2GM/50ML 50 ML IV SCH (01:05)
[2019-04-17 01:14] VITALS: BP 114/62
[2019-04-17] MEDS: PANTOPRAZOLE 40 MG IV IVPush SCH ×2 (05:11→16:17)
[2019-04-17 07:07] VITALS: BP 124/80
[2019-04-17] MEDS ORDERED: NITROFURANTOIN (MACROBID) 100 MG CAPSULE PO SCH (09:30)
[2019-04-17] MEDS: APIXABAN 5 MG TABLET PO SCH ×3 (10:05→21:33)
[2019-04-17 13:52] VITALS: BP 117/75
[2019-04-17 19:41] VITALS: BP 121/74
[2019-04-17] MEDS: SULFAMETH./TRIMETHOPRIM DS 800MG/160MG TABLET PO SCH ×2 (21:00→21:33)
[2019-04-18] MEDS: CEFTRIAXONE PMX 2GM/50ML 50 ML IV SCH (01:04)
[2019-04-18 02:24] VITALS: BP 118/74
[2019-04-18] MEDS: PANTOPRAZOLE 40 MG IV IVPush SCH (05:00)
[2019-04-18 08:42] VITALS: BP 119/77
[2019-04-18] MEDS: ONDANSETRON 2MG/ML, 2ML IVPush PRN (10:46)
[2019-04-18] MEDS: APIXABAN 5 MG TABLET PO SCH (10:47)
[2019-04-18] MEDS: SULFAMETH./TRIMETHOPRIM DS 800MG/160MG TABLET PO SCH (10:47)
[2019-04-18] MEDS ORDERED: DOCU-131 PO (11:03)
[2019-04-18] MEDS ORDERED: CEPH-368 PO (11:03)
[2019-04-18] MEDS ORDERED: APIX5TAB PO (11:03)
[2019-04-18] MEDS ORDERED: OMEP-110 PO (11:04)
[2019-04-18] MEDS ORDERED: CEPHALEXIN 500 MG CAPSULE PO SCH (11:30)
[2019-04-18 14:45] VITALS: BP 104/68
[2019-04-18] MEDS ORDERED: MAGNESIUM CITRATE 300ML ORAL SOL PO ONE (16:30)
== END 2019-04-18 17:24 ==
LOC: ED 13:26 → 3NW 14:11 → INTOOBSV 14:11
PROVIDERS: ADMIT Hospitalist; ATTEND Hospitalist
DX: N39.0 Urinary tract infection, site not specified (principal); R62.7 Adult failure to thrive; K44.9 Diaphragmatic hernia without obstruction or gangrene; R11.2 Nausea with vomiting, unspecified; R53.1 Weakness; F03.90 Unspecified dementia, unspecified severity, without behavioral disturbance, psychotic disturbance, mood disturbance, and anxiety; M54.9 Dorsalgia, unspecified; G89.29 Other chronic pain; I82.509 Chronic embolism and thrombosis of unspecified deep veins of unspecified lower extremity; D68.69 Other thrombophilia; Z87.891 Personal history of nicotine dependence; Z86.718 Personal history of other venous thrombosis and embolism; Z88.0 Allergy status to penicillin; Z79.01 Long term (current) use of anticoagulants; Z86.711 Personal history of pulmonary embolism
CPT/HCPCS: 36415; 71045; 74018; 74021; 80053; 80061; 83036; 83605; 83690; 83735; 83880; 84100; 84439; 84443; 84484; 85025; 87040; 93005; 96361; 96365; 96366; 96375; 96376; 97162; 97166; 99284; C9113; G0378; J0696; J2405; J3490; J7030; 96374

== ENCOUNTER 2019-04-30 19:50 | Inpatient (IN) | payer MEDICARE ==
[~2019-04-30] VITALS: Ht 162.6 cm; Wt 57.0 kg
[~2019-04-30 19:50] MED LIST changes: +CEPH-368 PO; +DOCU-131 PO; +OMEP-110 PO
--- NOTE | 2019-04-30 20:02 | NUR ---
BIB [facility] D/T +N/V + ABDOMEN PAIN FOR 2 DAYS . BP UP TO 134/74 FROM 87/56 AFTER GIVEN IV NS BOLUS 1 LITER BY [facility] . EKG WDL AAOX4 PT IS W/C BOUND FOR 2 YRS PT IS LIVING IN [facility] PLACE DTR IS COMING. HX DVT ON ELIQUIS OTHERWISE NO MED LIST PT IS TAKING ALL PILLS BY [facility] HOME MED LIST FOR NOW MONCHO JOHNSON AT BED SIDE FOR ER EVAL VSS STABLE AFEBRILE
--- NOTE | 2019-04-30 20:07 | NUR ---
PT IS STILL PUKING CLEAR BILE COLORED VOMITTING NOTIFIED TO MONCHO JONHSON AND WILL BE MEDICATED
[2019-04-30] MEDS ORDERED: PROMETHAZINE 25 MG/ML, 1ML ONE (20:08)
[2019-04-30] MEDS ORDERED: FAMOTIDINE 20 MG/2 ML ONE (20:09)
--- NOTE | 2019-04-30 20:22 | NUR ---
MEDICALTED PT IS IN US IMAGING NOW THEN WILL DO STRAIGHT CATH FOR [facility]A GIVEN REPORT TO [facility]
[2019-04-30] MEDS ORDERED: FAMOTIDINE 20 MG/2 ML IVP ONE (20:30)
[2019-04-30] MEDS ORDERED: PROMETHAZINE 25 MG/ML, 1ML IM ONE (20:30)
[2019-04-30] MEDS ORDERED: SODIUM CHLORIDE 0.9% 1,000ML IVBOLUS ONE (20:30)
[2019-04-30 20:39] LABS: BASOPHILS # (AUTO) 0.01 x10^3/uL (0-0.1); BASOPHILS % (AUTO) 0 % (0-1); EOSINOPHILS # (AUTO) 0.01 x10^3/uL (0-0.4); EOSINOPHILS % (AUTO) 0 % (1-7); LYMPHOCYTES % (AUTO) 9 % (22-44); MD NO; MEAN CORPUSCULAR HEMOGLOBIN 30.4 pg (27.0-34.8); MEAN CORPUSCULAR HGB CONC 33.3 g/dL (32.4-35.8); MEAN CORPUSCULAR VOLUME 91.4 fL (80-100); MEAN PLATELET VOLUME 7.4 fL (7.4-10.4); MONOCYTES % (AUTO) 7 % (2-9); NEUTROPHILS # (AUTO) 6.41 x10^3/uL (1.8-6.8); NEUTROPHILS % (AUTO) 84 % (42-75); PLATELET COUNT 189 x10^3/uL (130-400); RED BLOOD COUNT 4.49 x10^6/uL (3.82-5.3); RED CELL DISTRIBUTION WIDTH 14.7 % (9.6-15.2)
[2019-04-30 20:44] LABS: ALBUMIN 3.4 g/dL (3.4-5.0); ANION GAP 6 mmol/L (5-15); CALCIUM 8.5 mg/dL (8.5-10.1); CHLORIDE 112 mmol/L (98-107)
[2019-04-30 20:48] LABS: ALANINE AMINOTRANSFERASE 267 U/L (12-78); ALKALINE PHOSPHATASE 149 U/L (45-117); CREATININE 0.98 mg/dL (0.55-1.02); TOTAL PROTEIN 7.2 g/dL (6.4-8.2)
[2019-04-30] MEDS ORDERED: OMNIPAQUE 350 MG/ML, 100ML BOTTLE ONE (21:00)
--- NOTE | 2019-04-30 21:06 | NUR ---
PT RETURNED FROM RADIOLOGY. REPORT TO CALI MOORE
[2019-04-30] MEDS ORDERED: NITR100C56 PO (21:22)
--- NOTE | 2019-04-30 21:27 | NUR ---
marin ( daughter in law ) [phone] at bed side
[2019-04-30 21:31] LABS: MICROSCOPIC NOT IND
[2019-04-30] MEDS ORDERED: ONDANSETRON 2MG/ML, 2ML ONE (23:00)
[2019-04-30] MEDS ORDERED: CEFOTETAN PMX 1GM/50ML 50 ML IV ONE (23:00)
[2019-04-30] MEDS ORDERED: CEFOTETAN PMX 1GM/50ML 50 ML ONE (23:00)
[2019-04-30] MEDS ORDERED: ONDANSETRON 2MG/ML, 2ML IVPush ONE (23:00)
--- NOTE | 2019-04-30 23:20 | NUR ---
PT REPOSITIONED IN [facility] FOR COMFORT. PT MEDICATED FOR NAUSEA AND ABX STARTED. PT TOLERATING WELL.
[2019-04-30] MEDS ORDERED: SODIUM CHLORIDE FLUSH 10ML SYR IVF PRN (23:30)
[2019-05-01 00:30] VITALS: BP 135/76
[2019-05-01] MEDS ORDERED: PROMETHAZINE 25 MG/ML, 1ML IM PRN (00:30)
[2019-05-01] MEDS ORDERED: ONDANSETRON 2MG/ML, 2ML IVPush PRN (00:30)
[2019-05-01] MEDS ORDERED: LACTATED RINGERS 1,000 ML IV SCH (00:30)
[2019-05-01] MEDS ORDERED: hydrALAzine 20 MG/ML, 1ML IVPush PRN (00:30)
[2019-05-01] MEDS ORDERED: HYDROmorphone 2 MG/ML, 1ML IVPush PRN (00:30)
[2019-05-01] MEDS ORDERED: ACETAMINOPHEN 325 MG TABLET PO PRN (00:30)
[2019-05-01] MEDS ORDERED: LABETALOL 5MG/ML, 20ML IVPush PRN (00:30)
[2019-05-01 00:52] LABS: INTERNATIONAL NORMALIZED RATIO 1.06 (0.93-1.1); PROTHROMBIN TIME 11.1 Seconds (9.6-11.5)
[2019-05-01] MEDS ORDERED: MORPHINE SULFATE 4 MG/ML, 1ML IVPush PRN (08:00)
[2019-05-01] MEDS ORDERED: OXYcodone 5 MG/5 ML ORAL.SOL UDC PO PRN (08:00)
[2019-05-01] MEDS: LACTOBACILLUS CHEW TABLET PO SCH ×3 (08:53→20:49)
[2019-05-01] MEDS: ENOXAPARIN 40 MG/0.4 ML SQ SCH (08:53)
[2019-05-01 09:05] VITALS: BP 136/84
[2019-05-01 10:01] LABS: BASOPHILS # (AUTO) 0.01 x10^3/uL (0-0.1); BASOPHILS % (AUTO) 0 % (0-1); EOSINOPHILS % (AUTO) 0 % (1-7); LYMPHOCYTES # (AUTO) 0.74 x10^3/uL (1-3.4); LYMPHOCYTES % (AUTO) 9 % (22-44); MD NO; MEAN CORPUSCULAR HEMOGLOBIN 30.3 pg (27.0-34.8); MEAN CORPUSCULAR VOLUME 91.8 fL (80-100); MEAN PLATELET VOLUME 6.9 fL (7.4-10.4); MONOCYTES # (AUTO) 0.53 x10^3/uL (0.2-0.8); MONOCYTES % (AUTO) 6 % (2-9); NEUTROPHILS # (AUTO) 7.22 x10^3/uL (1.8-6.8); NEUTROPHILS % (AUTO) 85 % (42-75); PLATELET COUNT 169 x10^3/uL (130-400); RED BLOOD COUNT 4.91 x10^6/uL (3.82-5.3)
[2019-05-01 10:13] LABS: ALANINE AMINOTRANSFERASE 288 U/L (12-78); ALBUMIN 3.3 g/dL (3.4-5.0); ANION GAP 10 mmol/L (5-15); CALCIUM 8.7 mg/dL (8.5-10.1); CHLORIDE 111 mmol/L (98-107); CREATININE 0.95 mg/dL (0.55-1.02)
[2019-05-01 10:16] LABS: ALKALINE PHOSPHATASE 145 U/L (45-117); BILIRUBIN,TOTAL 0.7 mg/dL (0.2-1.0); TOTAL PROTEIN 7.4 g/dL (6.4-8.2)
[2019-05-01] MEDS: CEFOTETAN PMX 1GM/50ML 50 ML IV SCH ×2 (11:17→22:51)
[2019-05-01 14:00] VITALS: BP 136/71
[2019-05-01 20:17] VITALS: BP 131/65
[2019-05-02 02:15] VITALS: BP 138/79
[2019-05-02 06:58] LABS: ALBUMIN 3.1 g/dL (3.4-5.0); ANION GAP 5 mmol/L (5-15); CALCIUM 8.7 mg/dL (8.5-10.1); CHLORIDE 107 mmol/L (98-107)
[2019-05-02 07:01] LABS: ALANINE AMINOTRANSFERASE 175 U/L (12-78); ALKALINE PHOSPHATASE 114 U/L (45-117); BILIRUBIN,TOTAL 0.7 mg/dL (0.2-1.0); CREATININE 0.97 mg/dL (0.55-1.02); TOTAL PROTEIN 7.2 g/dL (6.4-8.2)
[2019-05-02 07:27] VITALS: BP 143/85
[2019-05-02] MEDS: CARVEDILOL 3.125 MG TABLET PO SCH ×3 (09:15→20:26)
[2019-05-02] MEDS: LACTOBACILLUS CHEW TABLET PO SCH ×3 (09:15→23:46)
[2019-05-02] MEDS: ENOXAPARIN 40 MG/0.4 ML SQ SCH (09:15)
[2019-05-02] MEDS: CEFOTETAN PMX 1GM/50ML 50 ML IV SCH ×2 (11:59→23:46)
[2019-05-02] MEDS: SODIUM CHLORIDE 0.9% 1,000 ML IV SCH (12:00)
[2019-05-02] MEDS: METHYLPHENIDATE 5 MG TABLET PO SCH (12:00)
[2019-05-02] MEDS ORDERED: HOLD MEDICATION MC PRN (12:30)
[2019-05-02 13:59] VITALS: BP 126/78
[2019-05-02 18:17] VITALS: BP 129/81
[2019-05-02 19:47] VITALS: BP 120/77
[2019-05-03 01:55] VITALS: BP 129/70
[2019-05-03] MEDS ORDERED: BUPIVACAINE/EPI 0.5% 1:200K ONE (06:45)
[2019-05-03 07:58] VITALS: BP 125/70
[2019-05-03] MEDS: SODIUM CHLORIDE 0.9% 1,000 ML IV SCH (07:58)
[2019-05-03] MEDS: METHYLPHENIDATE 5 MG TABLET PO SCH (07:59)
[2019-05-03] MEDS: LACTOBACILLUS CHEW TABLET PO SCH ×3 (07:59→20:00)
[2019-05-03] MEDS: CEFOTETAN PMX 1GM/50ML 50 ML IV SCH ×2 (12:13→23:55)
[2019-05-03] MEDS ORDERED: FENTANYL PF 250 MCG/5ML ONE (13:08)
[2019-05-03] MEDS ORDERED: PROPOFOL 10 MG/ML, 20ML ONE (14:47)
[2019-05-03] MEDS ORDERED: NEOSTIGMINE 1 MG/ML, 10ML ONE (14:47)
[2019-05-03] MEDS ORDERED: ONDANSETRON 2MG/ML, 2ML ONE (14:47)
[2019-05-03] MEDS ORDERED: DEXAMETHASONE 4 MG/ML, 1ML ONE (14:47)
[2019-05-03] MEDS ORDERED: ROCURONIUM 10MG/ML,5ML ONE (14:47)
[2019-05-03] MEDS ORDERED: GLYCOPYRROLATE 0.2MG/1ML, 5ML ONE (14:47)
[2019-05-03] MEDS ORDERED: SUCCINYLCHOLINE 20 MG/ML, 10ML ONE (14:47)
[2019-05-03] MEDS ORDERED: OMNIPAQUE 350 MG/ML, 50 ML BOTTLE ONE (14:53)
[2019-05-03] MEDS ORDERED: HYDROmorphone 2 MG/ML, 1ML IVPush PRN (15:00)
[2019-05-03] MEDS ORDERED: ALBUTEROL/IPRATROPIUM 2.5MG/0.5MG, 3 ML NPPB PRN (15:00)
[2019-05-03] MEDS ORDERED: ONDANSETRON 2MG/ML, 2ML IV PRN (15:00)
[2019-05-03] MEDS ORDERED: MIDAZOLAM 1 MG/ML, 2ML IV PRN (15:00)
[2019-05-03] MEDS ORDERED: FENTANYL PF 100 MCG/2ML IV PRN (15:00)
[2019-05-03] MEDS ORDERED: OXYcodone 5 MG/5 ML ORAL.SOL UDC PO PRN (15:00)
[2019-05-03] MEDS ORDERED: ACETAMINOPHEN 325 MG TABLET PO PRN (15:00)
[2019-05-03] MEDS ORDERED: hydrALAzine 20 MG/ML, 1ML IV PRN (15:00)
[2019-05-03] MEDS ORDERED: METOPROLOL 1 MG/ML, 5ML IV PRN (15:00)
[2019-05-03] MEDS: CARVEDILOL 3.125 MG TABLET PO SCH (17:16)
[2019-05-03 18:57] VITALS: BP 97/56
[2019-05-04 00:08] VITALS: BP 106/67
[2019-05-04] MEDS: SODIUM CHLORIDE 0.9% 1,000 ML IV SCH (04:17)
[2019-05-04 04:19] VITALS: BP 129/76
[2019-05-04] MEDS: CARVEDILOL 3.125 MG TABLET PO SCH ×2 (05:32→17:43)
[2019-05-04 06:20] VITALS: BP 105/67
[2019-05-04] MEDS: METHYLPHENIDATE 5 MG TABLET PO SCH (08:13)
[2019-05-04] MEDS: LACTOBACILLUS CHEW TABLET PO SCH ×3 (08:13→20:16)
[2019-05-04] MEDS: ACETAMINOPHEN 325 MG TABLET PO PRN ×2 (10:59→20:16)
[2019-05-04] MEDS: CEFOTETAN PMX 1GM/50ML 50 ML IV SCH (11:37)
[2019-05-04 13:36] VITALS: BP 112/55
[2019-05-04 18:56] VITALS: BP 110/70
[2019-05-05 01:25] VITALS: BP 94/60
[2019-05-05 05:47] VITALS: BP 116/78
[2019-05-05] MEDS: CARVEDILOL 3.125 MG TABLET PO SCH ×2 (05:48→18:03)
[2019-05-05 06:50] VITALS: BP 102/64
[2019-05-05] MEDS: METHYLPHENIDATE 5 MG TABLET PO SCH (08:07)
[2019-05-05] MEDS: ACETAMINOPHEN 325 MG TABLET PO PRN ×2 (08:07→20:04)
[2019-05-05] MEDS: LACTOBACILLUS CHEW TABLET PO SCH ×3 (08:07→20:04)
[2019-05-05] MEDS: CEFOTETAN PMX 1GM/50ML 50 ML IV SCH ×2 (13:20)
[2019-05-05 13:21] VITALS: BP 111/71
[2019-05-05 20:30] VITALS: BP 141/70
[2019-05-06 02:18] VITALS: BP 125/73
[2019-05-06] MEDS: ACETAMINOPHEN 325 MG TABLET PO PRN (06:15)
[2019-05-06] MEDS: CARVEDILOL 3.125 MG TABLET PO SCH ×2 (06:15→17:31)
[2019-05-06 07:05] VITALS: BP 133/82
[2019-05-06] MEDS: METHYLPHENIDATE 5 MG TABLET PO SCH (09:11)
[2019-05-06] MEDS: LACTOBACILLUS CHEW TABLET PO SCH ×3 (09:11→20:14)
[2019-05-06] MEDS: APIXABAN 5 MG TABLET PO SCH ×2 (09:11→20:14)
[2019-05-06 13:29] VITALS: BP 106/71
[2019-05-06 16:29] LABS: MICROSCOPIC AUTO
[2019-05-06 16:30] LABS: CULTURE INDICATED? YES
[2019-05-06 18:59] VITALS: BP 133/83
[2019-05-07 01:39] VITALS: BP 152/91
[2019-05-07 05:38] LABS: BASOPHILS # (AUTO) 0.02 x10^3/uL (0-0.1); BASOPHILS % (AUTO) 0 % (0-1); EOSINOPHILS # (AUTO) 0.02 x10^3/uL (0-0.4); EOSINOPHILS % (AUTO) 0 % (1-7); LYMPHOCYTES # (AUTO) 1.31 x10^3/uL (1-3.4); LYMPHOCYTES % (AUTO) 12 % (22-44); MD NO; MEAN CORPUSCULAR HEMOGLOBIN 30.4 pg (27.0-34.8); MEAN CORPUSCULAR HGB CONC 33.1 g/dL (32.4-35.8); MEAN PLATELET VOLUME 7.2 fL (7.4-10.4); MONOCYTES # (AUTO) 0.89 x10^3/uL (0.2-0.8); MONOCYTES % (AUTO) 8 % (2-9); NEUTROPHILS # (AUTO) 8.82 x10^3/uL (1.8-6.8); NEUTROPHILS % (AUTO) 80 % (42-75); PLATELET COUNT 237 x10^3/uL (130-400); RED BLOOD COUNT 4.41 x10^6/uL (3.82-5.3); RED CELL DISTRIBUTION WIDTH 14.4 % (9.6-15.2)
[2019-05-07 05:46] LABS: CHLORIDE 105 mmol/L (98-107)
[2019-05-07 05:54] LABS: ALANINE AMINOTRANSFERASE 33 U/L (12-78); ALBUMIN 2.6 g/dL (3.4-5.0); ALKALINE PHOSPHATASE 95 U/L (45-117); ANION GAP 8 mmol/L (5-15); BILIRUBIN,TOTAL 0.5 mg/dL (0.2-1.0); CALCIUM 8.8 mg/dL (8.5-10.1); CREATININE 0.64 mg/dL (0.55-1.02); TOTAL PROTEIN 7.1 g/dL (6.4-8.2)
[2019-05-07] MEDS: CARVEDILOL 3.125 MG TABLET PO SCH ×2 (06:27→17:34)
[2019-05-07 06:35] VITALS: BP 132/84
[2019-05-07] MEDS: METHYLPHENIDATE 5 MG TABLET PO SCH (08:49)
[2019-05-07] MEDS: APIXABAN 5 MG TABLET PO SCH ×2 (08:49→21:35)
[2019-05-07] MEDS: DOCUSATE 50 MG/5 ML, 10ML UDC PO SCH (08:49)
[2019-05-07] MEDS: LACTOBACILLUS CHEW TABLET PO SCH ×3 (08:49→21:35)
[2019-05-07] MEDS ORDERED: POTASSIUM CHLORIDE 20 MEQ TAB.ER.PRT PO ONE (10:00)
[2019-05-07] MEDS: CEFTRIAXONE PMX 1GM/50ML 50 ML IV SCH (12:21)
[2019-05-07 12:26] VITALS: BP 122/78
[2019-05-07] MEDS ORDERED: OXYcodone 5 MG/5 ML ORAL.SOL UDC PO PRN (14:00)
[2019-05-07 17:32] VITALS: BP 140/82
[2019-05-07 18:57] VITALS: BP 123/77
[2019-05-08 02:00] VITALS: BP 113/73
[2019-05-08] MEDS: CARVEDILOL 3.125 MG TABLET PO SCH ×3 (05:42→17:02)
[2019-05-08 07:56] LABS: BASOPHILS # (AUTO) 0.05 x10^3/uL (0-0.1); BASOPHILS % (AUTO) 1 % (0-1); EOSINOPHILS # (AUTO) 0.08 x10^3/uL (0-0.4); EOSINOPHILS % (AUTO) 1 % (1-7); LYMPHOCYTES # (AUTO) 1.32 x10^3/uL (1-3.4); LYMPHOCYTES % (AUTO) 14 % (22-44); MD NO; MEAN CORPUSCULAR HEMOGLOBIN 29.8 pg (27.0-34.8); MEAN CORPUSCULAR VOLUME 90.3 fL (80-100); MEAN PLATELET VOLUME 6.5 fL (7.4-10.4); MONOCYTES % (AUTO) 8 % (2-9); NEUTROPHILS # (AUTO) 7.53 x10^3/uL (1.8-6.8); NEUTROPHILS % (AUTO) 77 % (42-75); PLATELET COUNT 276 x10^3/uL (130-400); RED BLOOD COUNT 4.54 x10^6/uL (3.82-5.3); RED CELL DISTRIBUTION WIDTH 14.5 % (9.6-15.2)
[2019-05-08 07:57] VITALS: BP 130/85
[2019-05-08 08:00] LABS: ALANINE AMINOTRANSFERASE 28 U/L (12-78); ALBUMIN 2.5 g/dL (3.4-5.0); ANION GAP 8 mmol/L (5-15); CHLORIDE 104 mmol/L (98-107); CREATININE 0.84 mg/dL (0.55-1.02)
[2019-05-08 08:02] LABS: ALKALINE PHOSPHATASE 95 U/L (45-117); BILIRUBIN,TOTAL 0.4 mg/dL (0.2-1.0); TOTAL PROTEIN 7.4 g/dL (6.4-8.2)
[2019-05-08] MEDS: LACTOBACILLUS CHEW TABLET PO SCH ×3 (09:13→21:54)
[2019-05-08] MEDS: APIXABAN 5 MG TABLET PO SCH ×2 (09:14→21:54)
[2019-05-08] MEDS: DOCUSATE 50 MG/5 ML, 10ML UDC PO SCH (09:14)
[2019-05-08] MEDS: METHYLPHENIDATE 5 MG TABLET PO SCH (09:16)
[2019-05-08] MEDS: CEFTRIAXONE PMX 1GM/50ML 50 ML IV SCH (12:11)
[2019-05-08 12:15] VITALS: BP 116/76
[2019-05-08 17:01] VITALS: BP 133/78
[2019-05-08 19:55] VITALS: BP 115/74
[2019-05-09 02:03] VITALS: BP 122/74
[2019-05-09 05:42] LABS: BASOPHILS # (AUTO) 0.02 x10^3/uL (0-0.1); BASOPHILS % (AUTO) 0 % (0-1); EOSINOPHILS # (AUTO) 0.12 x10^3/uL (0-0.4); EOSINOPHILS % (AUTO) 1 % (1-7); LYMPHOCYTES % (AUTO) 17 % (22-44); MD NO; MEAN CORPUSCULAR HEMOGLOBIN 30.4 pg (27.0-34.8); MEAN CORPUSCULAR HGB CONC 33.6 g/dL (32.4-35.8); MEAN CORPUSCULAR VOLUME 90.4 fL (80-100); MEAN PLATELET VOLUME 7.1 fL (7.4-10.4); MONOCYTES # (AUTO) 0.89 x10^3/uL (0.2-0.8); MONOCYTES % (AUTO) 10 % (2-9); NEUTROPHILS # (AUTO) 6.51 x10^3/uL (1.8-6.8); NEUTROPHILS % (AUTO) 72 % (42-75); PLATELET COUNT 320 x10^3/uL (130-400); RED BLOOD COUNT 4.36 x10^6/uL (3.82-5.3); RED CELL DISTRIBUTION WIDTH 14.5 % (9.6-15.2)
[2019-05-09 05:58] LABS: CHLORIDE 107 mmol/L (98-107)
[2019-05-09 06:17] LABS: ANION GAP 11 mmol/L (5-15); CALCIUM 8.9 mg/dL (8.5-10.1); CREATININE 0.68 mg/dL (0.55-1.02)
[2019-05-09] MEDS: CARVEDILOL 3.125 MG TABLET PO SCH ×2 (06:24→17:53)
[2019-05-09 06:58] VITALS: BP 126/83
[2019-05-09] MEDS: LACTOBACILLUS CHEW TABLET PO SCH ×3 (08:47→21:05)
[2019-05-09] MEDS: APIXABAN 5 MG TABLET PO SCH ×2 (08:47→21:05)
[2019-05-09] MEDS: DOCUSATE 50 MG/5 ML, 10ML UDC PO SCH ×2 (08:48→09:00)
[2019-05-09 11:59] VITALS: BP 112/74
[2019-05-09] MEDS: CEFTRIAXONE PMX 1GM/50ML 50 ML IV SCH (12:02)
[2019-05-09 17:52] VITALS: BP 117/75
[2019-05-09] MEDS: LINEZOLID PMX 600MG/300ML 300 ML IV SCH (21:05)
[2019-05-09 21:30] VITALS: BP 123/80
[2019-05-10 00:44] VITALS: BP 126/75
[2019-05-10 05:08] LABS: BASOPHILS # (AUTO) 0.03 x10^3/uL (0-0.1); BASOPHILS % (AUTO) 0 % (0-1); EOSINOPHILS # (AUTO) 0.18 x10^3/uL (0-0.4); EOSINOPHILS % (AUTO) 2 % (1-7); LYMPHOCYTES # (AUTO) 1.73 x10^3/uL (1-3.4); LYMPHOCYTES % (AUTO) 23 % (22-44); MD NO; MEAN CORPUSCULAR HEMOGLOBIN 29.6 pg (27.0-34.8); MEAN CORPUSCULAR HGB CONC 32.7 g/dL (32.4-35.8); MEAN CORPUSCULAR VOLUME 90.4 fL (80-100); MEAN PLATELET VOLUME 6.9 fL (7.4-10.4); MONOCYTES # (AUTO) 0.94 x10^3/uL (0.2-0.8); MONOCYTES % (AUTO) 12 % (2-9); NEUTROPHILS % (AUTO) 63 % (42-75); PLATELET COUNT 284 x10^3/uL (130-400); RED BLOOD COUNT 4.53 x10^6/uL (3.82-5.3); RED CELL DISTRIBUTION WIDTH 14.3 % (9.6-15.2)
[2019-05-10 05:12] LABS: ANION GAP 8 mmol/L (5-15); CALCIUM 9.1 mg/dL (8.5-10.1); CHLORIDE 105 mmol/L (98-107); CREATININE 0.78 mg/dL (0.55-1.02)
[2019-05-10] MEDS: CARVEDILOL 3.125 MG TABLET PO SCH ×2 (06:00→16:39)
[2019-05-10] MEDS: APIXABAN 5 MG TABLET PO SCH ×2 (08:52→20:58)
[2019-05-10] MEDS: LINEZOLID PMX 600MG/300ML 300 ML IV SCH ×2 (08:52→20:58)
[2019-05-10] MEDS: DOCUSATE 50 MG/5 ML, 10ML UDC PO SCH (08:52)
[2019-05-10] MEDS: LACTOBACILLUS CHEW TABLET PO SCH ×3 (08:52→20:57)
[2019-05-10 09:22] VITALS: BP 104/68
[2019-05-10 16:25] VITALS: BP 124/74
[2019-05-10] MEDS: POTASSIUM CHLORIDE 20 MEQ TAB.ER.PRT PO SCH (16:38)
[2019-05-10 19:22] VITALS: BP 110/76
[2019-05-11 02:23] VITALS: BP 113/69
[2019-05-11 05:53] VITALS: BP 117/72
[2019-05-11] MEDS: CARVEDILOL 3.125 MG TABLET PO SCH ×2 (05:55→18:17)
[2019-05-11 06:18] LABS: BASOPHILS # (AUTO) 0.05 x10^3/uL (0-0.1); BASOPHILS % (AUTO) 1 % (0-1); EOSINOPHILS # (AUTO) 0.17 x10^3/uL (0-0.4); EOSINOPHILS % (AUTO) 2 % (1-7); LYMPHOCYTES # (AUTO) 1.81 x10^3/uL (1-3.4); LYMPHOCYTES % (AUTO) 24 % (22-44); MD NO; MEAN CORPUSCULAR HEMOGLOBIN 29.5 pg (27.0-34.8); MEAN CORPUSCULAR HGB CONC 32.9 g/dL (32.4-35.8); MEAN CORPUSCULAR VOLUME 89.7 fL (80-100); MEAN PLATELET VOLUME 6.4 fL (7.4-10.4); MONOCYTES % (AUTO) 11 % (2-9); NEUTROPHILS # (AUTO) 4.68 x10^3/uL (1.8-6.8); NEUTROPHILS % (AUTO) 62 % (42-75); PLATELET COUNT 311 x10^3/uL (130-400); RED BLOOD COUNT 4.15 x10^6/uL (3.82-5.3); RED CELL DISTRIBUTION WIDTH 14.2 % (9.6-15.2)
[2019-05-11 06:32] LABS: ALBUMIN 2.4 g/dL (3.4-5.0); ANION GAP 9 mmol/L (5-15); CALCIUM 8.8 mg/dL (8.5-10.1); CHLORIDE 107 mmol/L (98-107)
[2019-05-11 06:34] LABS: ALANINE AMINOTRANSFERASE 23 U/L (12-78); ALKALINE PHOSPHATASE 77 U/L (45-117); BILIRUBIN,TOTAL 0.6 mg/dL (0.2-1.0); CREATININE 0.83 mg/dL (0.55-1.02); TOTAL PROTEIN 6.8 g/dL (6.4-8.2)
[2019-05-11 09:01] VITALS: BP 121/58
[2019-05-11] MEDS: POTASSIUM CHLORIDE 20 MEQ TAB.ER.PRT PO SCH ×2 (09:11→12:30)
[2019-05-11] MEDS: LACTOBACILLUS CHEW TABLET PO SCH ×3 (09:11→21:15)
[2019-05-11] MEDS: APIXABAN 5 MG TABLET PO SCH ×2 (09:11→21:15)
[2019-05-11] MEDS: LINEZOLID PMX 600MG/300ML 300 ML IV SCH ×2 (09:11→21:15)
[2019-05-11] MEDS: DOCUSATE 50 MG/5 ML, 10ML UDC PO SCH (09:15)
[2019-05-11 12:08] VITALS: BP 128/83
[2019-05-11 20:05] VITALS: BP 117/79
[2019-05-12 03:45] VITALS: BP 133/84
[2019-05-12] MEDS: CARVEDILOL 3.125 MG TABLET PO SCH ×3 (06:00→17:04)
[2019-05-12] MEDS: DOCUSATE 50 MG/5 ML, 10ML UDC PO SCH (07:35)
[2019-05-12 09:06] VITALS: BP 142/87
[2019-05-12] MEDS: APIXABAN 5 MG TABLET PO SCH ×2 (09:17→21:45)
[2019-05-12] MEDS: LACTOBACILLUS CHEW TABLET PO SCH ×3 (09:17→21:44)
[2019-05-12] MEDS: LINEZOLID PMX 600MG/300ML 300 ML IV SCH ×2 (09:17→21:45)
[2019-05-12 13:14] VITALS: BP 101/65
[2019-05-12 17:02] VITALS: BP 127/79
[2019-05-12 18:28] VITALS: BP 107/71
[2019-05-13 00:07] VITALS: BP 109/66
[2019-05-13] MEDS: CARVEDILOL 3.125 MG TABLET PO SCH (06:00)
[2019-05-13] MEDS: DOCUSATE 50 MG/5 ML, 10ML UDC PO SCH (07:06)
[2019-05-13 07:10] VITALS: BP 129/84
[2019-05-13] MEDS: APIXABAN 5 MG TABLET PO SCH ×2 (09:08→19:42)
[2019-05-13] MEDS: LINEZOLID PMX 600MG/300ML 300 ML IV SCH (09:08)
[2019-05-13] MEDS: LACTOBACILLUS CHEW TABLET PO SCH ×3 (09:08→19:42)
[2019-05-13] MEDS: LINEZOLID 600 MG TABLET PO SCH ×2 (10:10→21:36)
[2019-05-13 14:17] VITALS: BP 117/68
[2019-05-13 18:49] VITALS: BP 113/75
[2019-05-14 02:34] VITALS: BP 131/86
[2019-05-14 05:36] LABS: ANION GAP 8 mmol/L (5-15); CALCIUM 8.8 mg/dL (8.5-10.1); CHLORIDE 109 mmol/L (98-107)
[2019-05-14 05:37] LABS: CREATININE 0.96 mg/dL (0.55-1.02)
[2019-05-14 05:38] LABS: MEAN CORPUSCULAR HEMOGLOBIN 30.3 pg (27.0-34.8); MEAN CORPUSCULAR HGB CONC 33.3 g/dL (32.4-35.8); MEAN CORPUSCULAR VOLUME 90.8 fL (80-100); MEAN PLATELET VOLUME 6.5 fL (7.4-10.4); PLATELET COUNT 365 x10^3/uL (130-400); RED BLOOD COUNT 4.21 x10^6/uL (3.82-5.3); RED CELL DISTRIBUTION WIDTH 14.6 % (9.6-15.2)
[2019-05-14 06:05] LABS: BASOPHILS # (AUTO) 0.04 x10^3/uL (0-0.1); BASOPHILS % (AUTO) 1 % (0-1); EOSINOPHILS # (AUTO) 0.11 x10^3/uL (0-0.4); EOSINOPHILS % (AUTO) 2 % (1-7); LYMPHOCYTES % (AUTO) 31 % (22-44); MD NO; MONOCYTES # (AUTO) 0.49 x10^3/uL (0.2-0.8); MONOCYTES % (AUTO) 9 % (2-9); NEUTROPHILS # (AUTO) 3.16 x10^3/uL (1.8-6.8); NEUTROPHILS % (AUTO) 57 % (42-75)
[2019-05-14] MEDS: LINEZOLID 600 MG TABLET PO SCH ×2 (08:25→21:04)
[2019-05-14] MEDS: DOCUSATE 50 MG/5 ML, 10ML UDC PO SCH (08:25)
[2019-05-14] MEDS: LACTOBACILLUS CHEW TABLET PO SCH ×3 (08:25→21:04)
[2019-05-14] MEDS: APIXABAN 5 MG TABLET PO SCH ×2 (08:31→21:04)
[2019-05-14 10:16] VITALS: BP 102/56
[2019-05-14 12:30] VITALS: BP 97/62
[2019-05-14 20:00] VITALS: BP 120/79
[2019-05-15 01:48] VITALS: BP 119/73
[2019-05-15 07:37] VITALS: BP 122/79
[2019-05-15] MEDS: LINEZOLID 600 MG TABLET PO SCH ×2 (08:59→20:50)
[2019-05-15] MEDS: LACTOBACILLUS CHEW TABLET PO SCH ×3 (09:00→20:50)
[2019-05-15] MEDS: DOCUSATE 50 MG/5 ML, 10ML UDC PO SCH (09:00)
[2019-05-15] MEDS: APIXABAN 5 MG TABLET PO SCH ×2 (09:02→20:50)
[2019-05-15 12:19] VITALS: BP 118/82
[2019-05-15] MEDS ORDERED: SODIUM CHLORIDE 0.9% 1,000 ML IV SCH (17:00)
[2019-05-15] MEDS ORDERED: CARVEDILOL 25 MG TABLET PO SCH (18:00)
[2019-05-15 20:33] VITALS: BP 108/71
[2019-05-16 02:12] VITALS: BP 122/80
[2019-05-16 07:10] VITALS: BP 128/77
[2019-05-16] MEDS: APIXABAN 5 MG TABLET PO SCH ×2 (08:35→21:24)
[2019-05-16] MEDS: LINEZOLID 600 MG TABLET PO SCH ×2 (08:35→21:25)
[2019-05-16] MEDS: DOCUSATE 50 MG/5 ML, 10ML UDC PO SCH (08:35)
[2019-05-16] MEDS: LACTOBACILLUS CHEW TABLET PO SCH ×3 (08:35→21:24)
[2019-05-16 12:14] VITALS: BP 113/67
[2019-05-16 20:07] VITALS: BP 125/70
[2019-05-17 02:05] VITALS: BP 116/67
[2019-05-17 06:55] VITALS: BP 123/82
[2019-05-17] MEDS: LACTOBACILLUS CHEW TABLET PO SCH ×3 (09:53→19:59)
[2019-05-17] MEDS: APIXABAN 5 MG TABLET PO SCH ×2 (09:53→19:59)
[2019-05-17] MEDS: DOCUSATE 50 MG/5 ML, 10ML UDC PO SCH (09:53)
[2019-05-17] MEDS: LINEZOLID 600 MG TABLET PO SCH ×2 (09:53→19:59)
[2019-05-17 13:47] VITALS: BP 114/74
[2019-05-17 18:33] VITALS: BP 116/77
[2019-05-18 01:59] VITALS: BP 111/83
[2019-05-18 07:54] VITALS: BP 119/72
[2019-05-18] MEDS: APIXABAN 5 MG TABLET PO SCH ×2 (09:08→20:01)
[2019-05-18] MEDS: DOCUSATE 50 MG/5 ML, 10ML UDC PO SCH (09:08)
[2019-05-18] MEDS: LACTOBACILLUS CHEW TABLET PO SCH ×3 (09:08→20:01)
[2019-05-18] MEDS: LINEZOLID 600 MG TABLET PO SCH (09:08)
[2019-05-18 12:49] VITALS: BP 100/60
[2019-05-18 18:30] VITALS: BP 115/66
[2019-05-19 00:59] VITALS: BP 118/75
[2019-05-19 08:19] VITALS: BP 124/84
[2019-05-19] MEDS: LACTOBACILLUS CHEW TABLET PO SCH ×4 (09:00→20:05)
[2019-05-19] MEDS: DOCUSATE 50 MG/5 ML, 10ML UDC PO SCH ×2 (09:00→10:04)
[2019-05-19] MEDS: APIXABAN 5 MG TABLET PO SCH ×2 (10:03→20:05)
[2019-05-19 12:46] VITALS: BP 126/58
[2019-05-19 18:46] VITALS: BP 120/67
[2019-05-20 00:08] VITALS: BP 123/77
[2019-05-20 07:23] VITALS: BP 138/88
[2019-05-20] MEDS: LACTOBACILLUS CHEW TABLET PO SCH ×3 (08:58→20:15)
[2019-05-20] MEDS: DOCUSATE 50 MG/5 ML, 10ML UDC PO SCH (08:58)
[2019-05-20] MEDS: APIXABAN 5 MG TABLET PO SCH ×2 (08:58→20:16)
[2019-05-20 14:02] VITALS: BP 102/59
[2019-05-20 19:54] VITALS: BP 108/71
[2019-05-21 03:30] VITALS: BP 115/65
[2019-05-21 05:23] LABS: CULTURE INDICATED? YES; MICROSCOPIC INDICATED
[2019-05-21 08:27] VITALS: BP 113/71
[2019-05-21] MEDS: DOCUSATE 50 MG/5 ML, 10ML UDC PO SCH (08:42)
[2019-05-21] MEDS: LACTOBACILLUS CHEW TABLET PO SCH ×3 (08:43→19:26)
[2019-05-21] MEDS: APIXABAN 5 MG TABLET PO SCH ×2 (08:43→19:26)
[2019-05-21 12:47] VITALS: BP 111/86
[2019-05-21] MEDS: FLUCONAZOLE 200 MG/100 ML 100 ML IV SCH (15:50)
[2019-05-21 19:27] VITALS: BP 103/58
[2019-05-22 02:05] VITALS: BP 108/62
[2019-05-22 05:12] LABS: BASOPHILS # (AUTO) 0.04 x10^3/uL (0-0.1); BASOPHILS % (AUTO) 1 % (0-1); EOSINOPHILS % (AUTO) 2 % (1-7); LYMPHOCYTES # (AUTO) 1.93 x10^3/uL (1-3.4); LYMPHOCYTES % (AUTO) 37 % (22-44); MD NO; MEAN CORPUSCULAR HEMOGLOBIN 29.5 pg (27.0-34.8); MEAN CORPUSCULAR VOLUME 89.4 fL (80-100); MEAN PLATELET VOLUME 6.7 fL (7.4-10.4); MONOCYTES # (AUTO) 0.81 x10^3/uL (0.2-0.8); MONOCYTES % (AUTO) 16 % (2-9); NEUTROPHILS # (AUTO) 2.34 x10^3/uL (1.8-6.8); NEUTROPHILS % (AUTO) 45 % (42-75); PLATELET COUNT 195 x10^3/uL (130-400); RED BLOOD COUNT 3.99 x10^6/uL (3.82-5.3); RED CELL DISTRIBUTION WIDTH 14.5 % (9.6-15.2)
[2019-05-22 05:16] LABS: ALBUMIN 3.1 g/dL (3.4-5.0); ANION GAP 8 mmol/L (5-15); CALCIUM 8.9 mg/dL (8.5-10.1); CHLORIDE 107 mmol/L (98-107)
[2019-05-22 05:19] LABS: ALANINE AMINOTRANSFERASE 18 U/L (12-78); ALKALINE PHOSPHATASE 86 U/L (45-117); BILIRUBIN,TOTAL 0.4 mg/dL (0.2-1.0); CREATININE 0.88 mg/dL (0.55-1.02); TOTAL PROTEIN 7.1 g/dL (6.4-8.2)
[2019-05-22 07:38] VITALS: BP 111/57
[2019-05-22] MEDS: DOCUSATE 50 MG/5 ML, 10ML UDC PO SCH (09:00)
[2019-05-22] MEDS: LACTOBACILLUS CHEW TABLET PO SCH ×3 (09:19→19:44)
[2019-05-22] MEDS: APIXABAN 5 MG TABLET PO SCH ×2 (09:19→19:44)
[2019-05-22 13:54] VITALS: BP 109/60
[2019-05-22] MEDS: FLUCONAZOLE 200 MG/100 ML 100 ML IV SCH (15:49)
[2019-05-22 19:27] VITALS: BP 110/64
[2019-05-23 04:00] VITALS: BP 142/62
[2019-05-23 08:28] VITALS: BP 100/60
[2019-05-23] MEDS: DOCUSATE 50 MG/5 ML, 10ML UDC PO SCH (08:37)
[2019-05-23] MEDS: LACTOBACILLUS CHEW TABLET PO SCH ×3 (08:37→20:27)
[2019-05-23] MEDS: APIXABAN 5 MG TABLET PO SCH ×2 (08:37→20:27)
[2019-05-23 13:57] VITALS: BP 106/59
[2019-05-23] MEDS: FLUCONAZOLE 200 MG/100 ML 100 ML IV SCH (15:54)
[2019-05-23 20:34] VITALS: BP 134/96
[2019-05-24 02:37] VITALS: BP 114/60
[2019-05-24 08:06] VITALS: BP 128/64
[2019-05-24] MEDS: APIXABAN 5 MG TABLET PO SCH (08:42)
[2019-05-24] MEDS: LACTOBACILLUS CHEW TABLET PO SCH (08:43)
[2019-05-24] MEDS: DOCUSATE 50 MG/5 ML, 10ML UDC PO SCH (08:43)
== END 2019-05-24 11:40 | disposition home health service (06) | DRG 417 ==
LOC: ED 21:49 → EDIP 23:18 → 4NOR 05-01 00:20
PROVIDERS: ADMIT Family Medicine; ATTEND Internal Medicine
PROC: BF131ZZ Fluoroscopy of Gallbladder and Bile Ducts using Low Osmolar Contrast (ICD-10-PCS; 2019-05-03)
PROC: 0FT44ZZ Resection of Gallbladder, Percutaneous Endoscopic Approach (ICD-10-PCS; principal; 2019-05-03 15:00)
DX: K85.10 Biliary acute pancreatitis without necrosis or infection (principal); G93.41 Metabolic encephalopathy; K80.62 Calculus of gallbladder and bile duct with acute cholecystitis without obstruction; D68.59 Other primary thrombophilia; N39.0 Urinary tract infection, site not specified; I82.401 Acute embolism and thrombosis of unspecified deep veins of right lower extremity; E87.6 Hypokalemia; I10 Essential (primary) hypertension; Z96.649 Presence of unspecified artificial hip joint; Z16.21 Resistance to vancomycin; K44.9 Diaphragmatic hernia without obstruction or gangrene; K21.9 Gastro-esophageal reflux disease without esophagitis; F03.90 Unspecified dementia, unspecified severity, without behavioral disturbance, psychotic disturbance, mood disturbance, and anxiety; B95.2 Enterococcus as the cause of diseases classified elsewhere; B37.9 Candidiasis, unspecified; Z86.718 Personal history of other venous thrombosis and embolism; Z79.01 Long term (current) use of anticoagulants; Z87.440 Personal history of urinary (tract) infections; Z86.711 Personal history of pulmonary embolism; Z88.0 Allergy status to penicillin
CPT/HCPCS: 36415; 70450; 74021; 74177; 74181; 74300; 76700; 80048; 80053; 81001; 81003; 83615; 83690; 83735; 84100; 85025; 85610; 85730; 87077; 87086; 87106; 87186; 88304; 93005; 99285; G0378; J0696; J1100; J1650; J2020; J2405; J2550; J2704; J2710; J3010; Q9967; J0330; J1450; J3490; J7030; J7120

== ENCOUNTER 2019-11-19 08:19 | Inpatient (IN) | payer MEDICARE ==
[~2019-11-19] VITALS: Ht 162.6 cm; Wt 60.0 kg
--- NOTE | 2019-11-19 08:55 | NUR ---
AFTER LAB DRAW, CLEANED UP OF STOOL OF INCONTINENCE.
[2019-11-19 09:06] LABS: BASOPHILS # (AUTO) 0.01 x10^3/uL (0-0.1); BASOPHILS % (AUTO) 0 % (0-1); EOSINOPHILS % (AUTO) 0 % (1-7); LYMPHOCYTES # (AUTO) 0.74 x10^3/uL (1-3.4); LYMPHOCYTES % (AUTO) 9 % (22-44); MD NO; MEAN CORPUSCULAR HEMOGLOBIN 27.7 pg (27.0-34.8); MEAN CORPUSCULAR HGB CONC 32.3 g/dL (32.4-35.8); MEAN CORPUSCULAR VOLUME 85.8 fL (80-100); MEAN PLATELET VOLUME 6.9 fL (7.4-10.4); MONOCYTES # (AUTO) 0.39 x10^3/uL (0.2-0.8); MONOCYTES % (AUTO) 5 % (2-9); NEUTROPHILS # (AUTO) 6.68 x10^3/uL (1.8-6.8); NEUTROPHILS % (AUTO) 86 % (42-75); PLATELET COUNT 225 x10^3/uL (130-400); RED BLOOD COUNT 4.69 x10^6/uL (3.82-5.3); RED CELL DISTRIBUTION WIDTH 16.5 % (9.6-15.2)
[2019-11-19 09:16] LABS: INTERNATIONAL NORMALIZED RATIO 0.97 (0.93-1.1); PROTHROMBIN TIME 10.2 Seconds (9.6-11.5)
--- NOTE | 2019-11-19 09:17 | NUR ---
TO CT VIA [facility]
[2019-11-19 09:20] LABS: ALBUMIN 3.6 g/dL (3.4-5.0); ANION GAP 11 mmol/L (5-15); CALCIUM 8.9 mg/dL (8.5-10.1); CHLORIDE 109 mmol/L (98-107)
[2019-11-19 09:24] LABS: ALANINE AMINOTRANSFERASE 21 U/L (12-78); ALKALINE PHOSPHATASE 109 U/L (45-117); BILIRUBIN,TOTAL 0.3 mg/dL (0.2-1.0); CREATININE 0.98 mg/dL (0.55-1.02); TOTAL PROTEIN 8.1 g/dL (6.4-8.2)
--- NOTE | 2019-11-19 10:09 | NUR ---
GRANDDAUGHTER AND APPAREL PATTERNMAKER AT BEDSIDE. STRAIGHT CATH URINE SAMPLE OBTAINED.
[2019-11-19 10:25] LABS: MICROSCOPIC AUTO
[2019-11-19 10:29] LABS: CULTURE INDICATED? YES
[2019-11-19] MEDS ORDERED: FOSFOMYCIN 3 GM PACKET PO ONE (10:40)
[2019-11-19] MEDS ORDERED: CEFTRIAXONE PMX 1GM/50ML 50 ML IVPB ONE (11:00)
[2019-11-19] MEDS ORDERED: CEFTRIAXONE PMX 1GM/50ML 50 ML ONE (12:06)
--- NOTE | 2019-11-19 12:10 | NUR ---
HOSPITALIST AT BEDSIDE
[2019-11-19] MEDS ORDERED: ACETAMINOPHEN 325 MG TABLET PO PRN (12:30)
[2019-11-19] MEDS ORDERED: hydrALAzine 20 MG/ML, 1ML IVPush PRN (12:30)
[2019-11-19] MEDS ORDERED: ONDANSETRON ODT 4 MG PO PRN (12:30)
[2019-11-19] MEDS ORDERED: ONDANSETRON 2MG/ML, 2ML IVPush PRN (12:30)
[2019-11-19] MEDS ORDERED: PROMETHAZINE 25 MG/ML, 1ML IM PRN (12:30)
--- NOTE | 2019-11-19 12:58 | NUR ---
REPORT TO RAFIA MOORE. PT TO BE TRANSPORTED TO FLOOR.
[2019-11-19] MEDS: NS + 20MEQ KCL 1,000 ML IV SCH (14:18)
[2019-11-19 14:20] VITALS: BP 145/84
[2019-11-19 14:45] VITALS: BP 145/84
[2019-11-19] MEDS ORDERED: CEFEPIME 2 GM in DEXTROSE 5% 100 ML IV SCH (15:00)
[2019-11-19] MEDS: LINEZOLID PMX 600MG/300ML 300 ML IV SCH (15:07)
[2019-11-19] MEDS ORDERED: NITR100C56 PO (15:42)
[2019-11-19 20:00] VITALS: BP 139/79
[2019-11-19] MEDS: APIXABAN 5 MG TABLET PO SCH (20:13)
[2019-11-20] MEDS: CEFEPIME 2 GM in DEXTROSE 5% 100 ML IV SCH ×2 (01:45→14:25)
[2019-11-20 01:57] VITALS: BP 130/79
[2019-11-20] MEDS: LINEZOLID PMX 600MG/300ML 300 ML IV SCH ×2 (03:55→16:05)
[2019-11-20 05:25] LABS: BASOPHILS # (AUTO) 0.02 x10^3/uL (0-0.1); BASOPHILS % (AUTO) 0 % (0-1); EOSINOPHILS # (AUTO) 0.22 x10^3/uL (0-0.4); EOSINOPHILS % (AUTO) 3 % (1-7); LYMPHOCYTES # (AUTO) 1.64 x10^3/uL (1-3.4); LYMPHOCYTES % (AUTO) 26 % (22-44); MD NO; MEAN CORPUSCULAR HEMOGLOBIN 27.7 pg (27.0-34.8); MEAN CORPUSCULAR HGB CONC 32.5 g/dL (32.4-35.8); MEAN CORPUSCULAR VOLUME 85.4 fL (80-100); MEAN PLATELET VOLUME 6.9 fL (7.4-10.4); MONOCYTES # (AUTO) 0.88 x10^3/uL (0.2-0.8); MONOCYTES % (AUTO) 14 % (2-9); NEUTROPHILS # (AUTO) 3.58 x10^3/uL (1.8-6.8); NEUTROPHILS % (AUTO) 57 % (42-75); PLATELET COUNT 220 x10^3/uL (130-400); RED BLOOD COUNT 4.42 x10^6/uL (3.82-5.3); RED CELL DISTRIBUTION WIDTH 16.2 % (9.6-15.2)
[2019-11-20 05:38] LABS: ANION GAP 5 mmol/L (5-15); CALCIUM 8.8 mg/dL (8.5-10.1); CHLORIDE 109 mmol/L (98-107); CREATININE 0.96 mg/dL (0.55-1.02)
[2019-11-20 07:41] VITALS: BP 131/69
[2019-11-20] MEDS: APIXABAN 5 MG TABLET PO SCH ×2 (09:15→20:41)
[2019-11-20] MEDS: NS + 20MEQ KCL 1,000 ML IV SCH (09:15)
[2019-11-20 13:28] VITALS: BP 107/70
[2019-11-20 19:52] VITALS: BP 123/78
[2019-11-21 02:05] VITALS: BP 127/77
[2019-11-21] MEDS: CEFEPIME 2 GM in DEXTROSE 5% 100 ML IV SCH ×2 (02:21→14:09)
[2019-11-21] MEDS: NS + 20MEQ KCL 1,000 ML IV SCH ×3 (02:24→19:46)
[2019-11-21] MEDS: LINEZOLID PMX 600MG/300ML 300 ML IV SCH (04:06)
[2019-11-21 07:07] LABS: BASOPHILS # (AUTO) 0.03 x10^3/uL (0-0.1); BASOPHILS % (AUTO) 1 % (0-1); EOSINOPHILS # (AUTO) 0.28 x10^3/uL (0-0.4); EOSINOPHILS % (AUTO) 6 % (1-7); LYMPHOCYTES # (AUTO) 1.51 x10^3/uL (1-3.4); LYMPHOCYTES % (AUTO) 33 % (22-44); MD NO; MEAN CORPUSCULAR HEMOGLOBIN 27.8 pg (27.0-34.8); MEAN CORPUSCULAR HGB CONC 32.6 g/dL (32.4-35.8); MEAN CORPUSCULAR VOLUME 85.4 fL (80-100); MEAN PLATELET VOLUME 7.2 fL (7.4-10.4); MONOCYTES # (AUTO) 0.57 x10^3/uL (0.2-0.8); MONOCYTES % (AUTO) 12 % (2-9); NEUTROPHILS # (AUTO) 2.21 x10^3/uL (1.8-6.8); NEUTROPHILS % (AUTO) 48 % (42-75); PLATELET COUNT 208 x10^3/uL (130-400); RED BLOOD COUNT 4.32 x10^6/uL (3.82-5.3); RED CELL DISTRIBUTION WIDTH 16.5 % (9.6-15.2)
[2019-11-21 07:09] LABS: ANION GAP 7 mmol/L (5-15); CALCIUM 8.7 mg/dL (8.5-10.1); CHLORIDE 110 mmol/L (98-107); CREATININE 0.92 mg/dL (0.55-1.02)
[2019-11-21 07:45] VITALS: BP 119/83
[2019-11-21] MEDS: APIXABAN 5 MG TABLET PO SCH ×2 (09:07→19:45)
[2019-11-21 13:01] VITALS: BP 107/70
[2019-11-21] MEDS: CEFDINIR 300 MG CAPSULE PO SCH (19:45)
[2019-11-21 20:33] VITALS: BP 111/68
[2019-11-22 01:59] VITALS: BP 106/71
[2019-11-22 07:40] VITALS: BP 112/75
[2019-11-22] MEDS: CEFDINIR 300 MG CAPSULE PO SCH ×2 (09:43→19:44)
[2019-11-22] MEDS: APIXABAN 5 MG TABLET PO SCH ×2 (09:43→19:44)
[2019-11-22] MEDS ORDERED: CEFD300C37 PO (11:10)
[2019-11-22 14:00] VITALS: BP 108/62
[2019-11-22 19:21] VITALS: BP 96/63
[2019-11-22] MEDS: NS + 20MEQ KCL 1,000 ML IV SCH (22:00)
[2019-11-23 03:53] VITALS: BP 109/72
[2019-11-23 08:08] VITALS: BP 116/75
[2019-11-23] MEDS: APIXABAN 5 MG TABLET PO SCH ×2 (10:07→22:27)
[2019-11-23] MEDS: CEFDINIR 300 MG CAPSULE PO SCH ×2 (10:07→22:27)
[2019-11-23] MEDS: NS + 20MEQ KCL 1,000 ML IV SCH (11:20)
[2019-11-23 13:53] VITALS: BP 105/73
[2019-11-23] MEDS ORDERED: ESTROGENS CONJUGATED VAG CRM 0.625MG/1G, 30GM VG ONE (17:00)
[2019-11-23 18:50] VITALS: BP 122/65
[2019-11-24 01:11] VITALS: BP 111/77
[2019-11-24 07:14] VITALS: BP 107/73
[2019-11-24] MEDS ORDERED: ACETAMINOPHEN 325 MG TABLET PO PRN (08:00)
[2019-11-24 08:59] VITALS: BP 85/56
[2019-11-24] MEDS: APIXABAN 5 MG TABLET PO SCH ×2 (09:26→19:57)
[2019-11-24 09:55] VITALS: BP 103/69
[2019-11-24 13:57] VITALS: BP 110/76
[2019-11-24 19:05] VITALS: BP 119/78
[2019-11-25 03:10] VITALS: BP 107/73
[2019-11-25 07:00] VITALS: BP 131/84
[2019-11-25] MEDS: APIXABAN 5 MG TABLET PO SCH ×2 (08:40→19:45)
[2019-11-25 13:19] VITALS: BP 101/67
[2019-11-25 19:33] VITALS: BP 105/66
[2019-11-25] MEDS: NITROFURANTOIN (MACROBID) 100 MG CAPSULE PO SCH (21:00)
[2019-11-26 00:32] VITALS: BP 108/75
[2019-11-26 07:42] VITALS: BP 125/90
[2019-11-26] MEDS: NITROFURANTOIN (MACROBID) 100 MG CAPSULE PO SCH (09:00)
[2019-11-26] MEDS: APIXABAN 5 MG TABLET PO SCH ×2 (09:00→20:32)
[2019-11-26 12:25] VITALS: BP 119/86
[2019-11-26 19:40] VITALS: BP 111/74
[2019-11-27 02:34] VITALS: BP 103/70
[2019-11-27 08:43] VITALS: BP 125/75
[2019-11-27] MEDS: APIXABAN 5 MG TABLET PO SCH ×2 (09:19→21:19)
[2019-11-27] MEDS: NITROFURANTOIN (MACROBID) 100 MG CAPSULE PO SCH (09:20)
[2019-11-27 14:37] VITALS: BP 117/80
[2019-11-27 19:28] VITALS: BP 113/76
[2019-11-28] VITALS (12 sets, daily range): BP systolic 104–134; BP diastolic 61–86
[2019-11-28] MEDS ORDERED: BISACODYL 10 MG SUPP PR ONE (07:30)
[2019-11-28] MEDS: CLOTRIMAZOLE VAGINAL CRM 1%, 45GM VG SCH (09:00)
[2019-11-28] MEDS: NITROFURANTOIN (MACROBID) 100 MG CAPSULE PO SCH (09:00)
[2019-11-28 09:44] LABS: MICROSCOPIC NOT IND
[2019-11-28] MEDS: APIXABAN 5 MG TABLET PO SCH ×2 (10:20→20:53)
[2019-11-28] MEDS: SENNA/DOCUSATE TABLET PO SCH (20:53)
[2019-11-29 02:58] VITALS: BP 111/73
[2019-11-29] MEDS ORDERED: MAGNESIUM CITRATE 300ML ORAL SOL PO ONE (08:00)
[2019-11-29] MEDS ORDERED: BISACODYL 10 MG SUPP PR SCH (08:00)
[2019-11-29 08:04] VITALS: BP 123/77
[2019-11-29] MEDS: NITROFURANTOIN (MACROBID) 100 MG CAPSULE PO SCH (09:43)
[2019-11-29] MEDS: APIXABAN 5 MG TABLET PO SCH ×2 (09:43→20:15)
[2019-11-29 15:54] VITALS: BP 99/71
[2019-11-29 19:19] VITALS: BP 110/66
[2019-11-29] MEDS: SENNA/DOCUSATE TABLET PO SCH (20:15)
[2019-11-30 01:25] VITALS: BP 116/73
[2019-11-30 07:34] VITALS: BP 125/83
[2019-11-30] MEDS: NITROFURANTOIN (MACROBID) 100 MG CAPSULE PO SCH (09:41)
[2019-11-30] MEDS: CLOTRIMAZOLE VAGINAL CRM 1%, 45GM VG SCH (09:41)
[2019-11-30] MEDS: APIXABAN 5 MG TABLET PO SCH (09:41)
[2019-11-30 13:48] VITALS: BP 150/74
[2019-11-30] MEDS ORDERED: CLOT45CR5 VG (14:46)
== END 2019-11-30 17:25 | DRG 689 ==
LOC: ED 10:01 → EDIP 12:15 → 3N 13:48 → 4WST 11-28 21:03
PROVIDERS: ADMIT Hospitalist; ATTEND Family Medicine
PROC: 0T9B70Z Drainage of Bladder with Drainage Device, Via Natural or Artificial Opening (ICD-10-PCS; principal; 2019-11-19)
DX: N30.90 Cystitis, unspecified without hematuria (principal); G92 Toxic encephalopathy; E46 Unspecified protein-calorie malnutrition; D68.69 Other thrombophilia; B95.2 Enterococcus as the cause of diseases classified elsewhere; W06.XXXA Fall from bed, initial encounter; Z96.649 Presence of unspecified artificial hip joint; K59.00 Constipation, unspecified; I95.9 Hypotension, unspecified; Z66 Do not resuscitate; I49.9 Cardiac arrhythmia, unspecified; F03.90 Unspecified dementia, unspecified severity, without behavioral disturbance, psychotic disturbance, mood disturbance, and anxiety; Z86.711 Personal history of pulmonary embolism; Z86.718 Personal history of other venous thrombosis and embolism; Z79.01 Long term (current) use of anticoagulants; Z90.49 Acquired absence of other specified parts of digestive tract; Z87.891 Personal history of nicotine dependence; Z88.0 Allergy status to penicillin; Z68.22 Body mass index [BMI] 22.0-22.9, adult; Y93.89 Activity, other specified; Y92.092 Bedroom in other non-institutional residence as the place of occurrence of the external cause; Y99.8 Other external cause status; Z87.440 Personal history of urinary (tract) infections
CPT/HCPCS: 36415; 70450; 71045; 80048; 80053; 81001; 81003; 84145; 85025; 85610; 87040; 87077; 87086; 87186; 93005; 96365; G0378; J0696; J2020; J3480

== ENCOUNTER 2021-07-28 12:28 | Inpatient (IN) | payer MEDICARE ==
[~2021-07-28] VITALS: Ht 162.6 cm; Wt 61.2 kg
[~2021-07-28 12:28] MED LIST changes: +ACET325T26 PO; +CEFD300C37 PO; +CEFT1VIA20 IV; +CLOT45CR23 VG; +DOCU100C33 PO
[2021-07-28 13:22] LABS: BASOPHILS % (AUTO) 1 % (0-1); EOSINOPHILS % (AUTO) 1 % (1-7); LYMPHOCYTES % (AUTO) 23 % (22-44); MEAN CORPUSCULAR HEMOGLOBIN 30.2 pg (27.0-34.8); MEAN CORPUSCULAR HGB CONC 33.4 g/dL (32.4-35.8); MEAN PLATELET VOLUME 6.7 fL (7.4-10.4); MONOCYTES % (AUTO) 15 % (2-9); NEUTROPHILS % (AUTO) 61 % (42-75); PLATELET COUNT 213 x10^3/uL (130-400); RED BLOOD COUNT 4.19 x10^6/uL (3.82-5.3); RED CELL DISTRIBUTION WIDTH 14.3 % (9.6-15.2)
--- NOTE | 2021-07-28 13:27 | NUR ---
THIS IS A 86 YO F BIB EMS FROM [facility] W/ C/O INCREASED ALTERED MENTAL STATUS FROM BASELINE. PT USUALLY A&OX2-3. PER PTS DAUGHTER IN LAW, PT WAS NOT ABLE TO RECOGNIZE HER LAST NIGHT WHICH IS ABNORMAL. DAUGHTER REPORTS PT ON PROPHYLAXIS KEFLEX FOR UTI. STRAIGHT CATH URINE OBTAINED W/O INCIDENT. PT RESTING ON GURNEY W/ CALL LIGHT IN REACH, SIDE RAILS UPX2. VSS, JACQUESN.
[2021-07-28 13:35] LABS: ALANINE AMINOTRANSFERASE 16 U/L (12-78); ALBUMIN 3.1 g/dL (3.4-5.0); ANION GAP 8 mmol/L (5-15); CALCIUM 8.6 mg/dL (8.5-10.1); CHLORIDE 108 mmol/L (98-107); CREATININE 0.99 mg/dL (0.55-1.02)
[2021-07-28] MEDS ORDERED: CEPH-375 PO (13:36)
[2021-07-28] MEDS ORDERED: ASCO500T8 PO (13:36)
[2021-07-28 13:37] LABS: ALKALINE PHOSPHATASE 88 U/L (45-117); BILIRUBIN,TOTAL 0.5 mg/dL (0.2-1.0); TOTAL PROTEIN 7.7 g/dL (6.4-8.2)
[2021-07-28 13:39] LABS: MICROSCOPIC INDICATED
[2021-07-28] MEDS ORDERED: CEFTRIAXONE 1,000 MG in DEXTROSE 5% 50 ML IVPB ONE (14:30)
--- NOTE | 2021-07-28 14:51 | NUR ---
ABX INFUSING PER EMAR. 1L NS BOLUS STARTED PER VERAL ORDER FROM .
[2021-07-28] MEDS ORDERED: SODIUM CHLORIDE 0.9% 1,000ML IVBOLUS ONE ×2 (15:00)
--- NOTE | 2021-07-28 15:53 | NUR ---
PER PT DAUGHTER, CHANGED MIND ON POC AND NOW WOULD LIKE TO ADMIT PT D/T CONTINUES AMS. , ASSUMED CARE OF PT FOR . DOREEN BEASLEY AT BEDSIDE FOR RECHECK.
[2021-07-28] MEDS ORDERED: SODIUM CHLORIDE 0.9% 1,000 ML IV ONE (16:30)
[2021-07-28] MEDS ORDERED: SODIUM CHLORIDE FLUSH 10ML SYR IVF PRN (16:30)
--- NOTE | 2021-07-28 17:27 | NUR ---
PT EATING DINNER PROVIDED BY FAMILY.
[2021-07-28] MEDS ORDERED: BISACODYL 10 MG SUPP PR PRN (18:00)
[2021-07-28] MEDS ORDERED: POLYETHYLENE GLYCOL 17 GM PACKET PO PRN (18:00)
[2021-07-28] MEDS ORDERED: DOCUSATE 100 MG CAPSULE PO PRN (18:00)
[2021-07-28] MEDS ORDERED: ONDANSETRON 2MG/ML, 2ML IVPush PRN (18:00)
[2021-07-28] MEDS ORDERED: ONDANSETRON ODT 4 MG PO PRN (18:00)
[2021-07-28] MEDS ORDERED: OXYcodone IR 5MG TABLET PO PRN (18:00)
[2021-07-28] MEDS ORDERED: PROMETHAZINE 25 MG/ML, 1ML IM PRN (18:00)
[2021-07-28] MEDS ORDERED: ACETAMINOPHEN 325 MG TABLET PO PRN (18:00)
[2021-07-28] MEDS ORDERED: hydrALAzine 20 MG/ML, 1ML IVPush PRN (18:00)
[2021-07-28 19:12] VITALS: BP 96/50
[2021-07-28] MEDS: CEFTAZIDIME 1,000 MG in SODIUM CHLORIDE 0.9% 50 ML IV SCH (19:42)
[2021-07-28] MEDS: ENOXAPARIN 40 MG/0.4 ML SQ SCH (19:59)
[2021-07-28] MEDS: D5%-0.9% NACL 1,000 ML IV SCH (20:00)
[2021-07-29] MEDS: D5%-0.9% NACL 1,000 ML IV SCH (02:51)
[2021-07-29 03:01] VITALS: BP 98/63
[2021-07-29 05:34] LABS: BASOPHILS % (AUTO) 1 % (0-1); EOSINOPHILS % (AUTO) 3 % (1-7); LYMPHOCYTES % (AUTO) 37 % (22-44); MEAN CORPUSCULAR HEMOGLOBIN 30.8 pg (27.0-34.8); MEAN CORPUSCULAR HGB CONC 34.2 g/dL (32.4-35.8); MEAN PLATELET VOLUME 7.3 fL (7.4-10.4); MONOCYTES % (AUTO) 12 % (2-9); NEUTROPHILS % (AUTO) 47 % (42-75); PLATELET COUNT 177 x10^3/uL (130-400); RED CELL DISTRIBUTION WIDTH 14.2 % (9.6-15.2)
[2021-07-29 05:38] LABS: ALBUMIN 2.3 g/dL (3.4-5.0); ANION GAP 6 mmol/L (5-15); CALCIUM 7.8 mg/dL (8.5-10.1); CHLORIDE 115 mmol/L (98-107)
[2021-07-29 05:52] LABS: ALANINE AMINOTRANSFERASE 10 U/L (12-78); ALKALINE PHOSPHATASE 70 U/L (45-117); BILIRUBIN,TOTAL 0.2 mg/dL (0.2-1.0); CHOL/HDL RATIO 2.3; CHOLESTEROL, TOTAL 103 mg/dL (140-239); CREATININE 0.73 mg/dL (0.55-1.02); HDL CHOL % 44 % (28-40); HDL CHOLESTEROL (DIRECT) 45 mg/dL (40-60); LDL CHOLESTEROL,CALCULATED 44 mg/dL (54-169); TOTAL PROTEIN 5.9 g/dL (6.4-8.2); TRIGLYCERIDES 69 mg/dL (50-200); VLDL CHOLESTEROL 14 mg/dL (0-25)
[2021-07-29] MEDS: CEFTAZIDIME 1,000 MG in SODIUM CHLORIDE 0.9% 50 ML IV SCH ×2 (06:38→19:32)
[2021-07-29 07:33] VITALS: BP 104/69
[2021-07-29 13:39] VITALS: BP 98/76
[2021-07-29] MEDS ORDERED: CEFTRIAXONE 2 GM in DEXTROSE 5% 50 ML IVPB SCH (15:00)
[2021-07-29] MEDS: ENOXAPARIN 40 MG/0.4 ML SQ SCH (19:29)
[2021-07-29 20:57] VITALS: BP 126/62
[2021-07-30 03:59] VITALS: BP 150/70
[2021-07-30] MEDS: CEFTAZIDIME 1,000 MG in SODIUM CHLORIDE 0.9% 50 ML IV SCH ×2 (07:56→20:20)
[2021-07-30 08:24] VITALS: BP 120/66
[2021-07-30] MEDS ORDERED: DOCU-181 PO ×2 (14:52)
[2021-07-30] MEDS ORDERED: CEFD300C37 PO ×2 (14:52)
[2021-07-30 15:05] VITALS: BP 131/64
[2021-07-30 20:31] VITALS: BP 106/74
[2021-07-30] MEDS: ENOXAPARIN 40 MG/0.4 ML SQ SCH (20:55)
[2021-07-31 02:09] VITALS: BP 122/80
[2021-07-31] MEDS: CEFTAZIDIME 1,000 MG in SODIUM CHLORIDE 0.9% 50 ML IV SCH ×2 (07:56→20:33)
[2021-07-31 08:20] VITALS: BP 102/66
[2021-07-31 14:05] VITALS: BP 106/68
[2021-07-31] MEDS: ENOXAPARIN 40 MG/0.4 ML SQ SCH (20:33)
[2021-08-01 02:25] VITALS: BP 102/69
[2021-08-01 06:50] VITALS: BP 102/65
[2021-08-01] MEDS: CEFTAZIDIME 1,000 MG in SODIUM CHLORIDE 0.9% 50 ML IV SCH (07:19)
[2021-08-01 15:40] VITALS: BP 101/67
[2021-08-01] MEDS: CEFDINIR 300 MG CAPSULE PO SCH (20:38)
[2021-08-01] MEDS: ENOXAPARIN 40 MG/0.4 ML SQ SCH (20:39)
[2021-08-01] MEDS ORDERED: CEFDINIR 300 MG CAPSULE PO SCH (21:00)
[2021-08-01 21:30] VITALS: BP 110/70
[2021-08-02 00:07] VITALS: BP 104/68
[2021-08-02 05:49] LABS: CREATININE 0.74 mg/dL (0.55-1.02)
[2021-08-02 08:31] VITALS: BP 121/80
[2021-08-02] MEDS: CEFDINIR 300 MG CAPSULE PO SCH ×2 (08:57→20:48)
[2021-08-02 12:59] VITALS: BP 136/71
[2021-08-02] MEDS ORDERED: CEFTAZIDIME PMX 2 GM/50ML 50 ML IV SCH (18:00)
[2021-08-02 19:46] VITALS: BP 119/77
[2021-08-02] MEDS: ENOXAPARIN 40 MG/0.4 ML SQ SCH (20:48)
[2021-08-03 00:26] VITALS: BP 117/76
[2021-08-03 07:51] VITALS: BP 124/80
[2021-08-03] MEDS: CEFDINIR 300 MG CAPSULE PO SCH (08:24)
[2021-08-03] MEDS ORDERED: APIX5TAB PO ×2 (11:18)
[2021-08-03] MEDS ORDERED: ASCO500T8 PO (11:18)
[2021-08-03] MEDS ORDERED: DOCU100C33 PO (11:18)
[2021-08-03 11:27] VITALS: BP 132/82
[2021-08-04] MEDS ORDERED: APIX2.5T PO (12:06)
[2021-08-04] MEDS ORDERED: CEFD300C37 PO (12:06)
== END 2021-08-03 11:52 | disposition home health service (06) | DRG 689 ==
LOC: ED 14:54 → EDIP 15:06 → 4NE 18:35
PROVIDERS: ADMIT Internal Medicine; ATTEND Internal Medicine
PROC: 0T9B70Z Drainage of Bladder with Drainage Device, Via Natural or Artificial Opening (ICD-10-PCS; principal; 2021-07-28)
DX: N30.90 Cystitis, unspecified without hematuria (principal); G93.41 Metabolic encephalopathy; Z96.649 Presence of unspecified artificial hip joint; B96.20 Unspecified Escherichia coli [E. coli] as the cause of diseases classified elsewhere; F03.90 Unspecified dementia, unspecified severity, without behavioral disturbance, psychotic disturbance, mood disturbance, and anxiety; K44.9 Diaphragmatic hernia without obstruction or gangrene; Z86.711 Personal history of pulmonary embolism; Z86.718 Personal history of other venous thrombosis and embolism; Z87.440 Personal history of urinary (tract) infections; Z90.49 Acquired absence of other specified parts of digestive tract; Z88.0 Allergy status to penicillin
CPT/HCPCS: 36415; 80053; 80061; 81001; 82565; 83036; 83735; 84100; 84443; 85025; 87077; 87086; 87186; 96374; G0378; J0696; J0713; J1650; J7042; J7030